=== PATIENT | female | born 1935 | race American Indian/Alaskan Native ===

== ENCOUNTER 2019-01-05 17:32 | Inpatient (IN) | payer MEDICARE ==
--- NOTE | 2019-01-05 17:43 | Consultation ---
History of Present Illness Consult date: 01/05/19 Medications and Allergies Allergies Allergy/AdvReac Type Severity Reaction Status Date / Time Penicillins Allergy Rash Verified 07/24/18 21:58 Home Medications Medication Instructions Recorded Confirmed Last Taken Type Aspirin [Adult Aspirin] 81 mg PO QDAY 07/24/18 07/24/18 Unknown History Carvedilol [Coreg] 12.5 mg PO BID 07/24/18 07/24/18 Unknown History Furosemide [Lasix TAB] 40 mg PO QDAY 07/24/18 07/24/18 Unknown History Gabapentin [Neurontin] 300 mg PO DAILY 07/24/18 07/24/18 Unknown History Lisinopril [Zestril] 20 mg PO QDAY 07/24/18 07/24/18 Unknown History Pravastatin [Pravachol] 40 mg PO DAILY 07/24/18 07/24/18 Unknown History metFORMIN [Glucophage] 500 mg PO BID 07/24/18 07/24/18 Unknown History - Assessment Assessment Interval: Baseline - Level of Consciousness 1a. Level of Consciousness: alert/keenly responsive - LOC Questions 1b. LOC Questions: answers 1 question correctly - LOC Command 1c. LOC Commands: performs tasks correctly - Best Gaze 2. Best Gaze: normal - Visual 3. Visual: no visual loss - Facial Palsy 4. Facial Palsy: minor paralysis - Motor Arm 5a. Motor Arm Left: drift 5b. Motor Arm Right: no drift - Motor Leg 6a. Motor Leg Left: no gravity effort 6b. Motor Leg Right: no drift - Limb Ataxia 7. Limb Ataxia: absent - Sensory 8. Sensory: mild/moderate sensory loss - Best Language 9. Best Language: no aphasia - Dysarthria 10. Dysarthria: mild/moderate dysarthria - Extinction and Inattention 11. Extinction/Inattention: no abnormality - Scoring Total Score: 8 Stroke Severity: Moderate Stroke Assessment and Plan Date of Service 01/05/2019 [facility] Tele[facility] Consult Services Comments: Last time known well: _ 01/01/19 Door time: _1732 [facility] contacted: _17:23 [facility] at bedside: _1726 NIHSS assessment time: _ 1727 consult end time: _1756 Impression: left sided weakness, slurred speech Consistent with Acute Ischemic Stroke Does meet Large Vessel Occlusion (LVO) screening criteria (Aphasia, Neglect, Gaze deviation/preference, Dense hemiparesis, or Visual field deficits on exam), therefore advanced imaging (CTA head and neck and CTP brain) is indicated. since deficits increased today and appears that the weakness noticed on tuesday was not focal, I believe CTA head and neck can be done urgently and if it shows Large Vessel Occlusion then transfer to get CTP brain and there may still be some salvagable brain if current deficits mostly started today. Differential Diagnosis: 1. Cardioembolic stroke 2. Small vessel disease/ lacune 3. Thromboembolic, [id number] mechanism 4. Hypercoagulable state-related infarct 5. Transient ischemic attack 6. Thrombotic mechanism, large artery disease tPA decision and other recommendations: _ Patient is not a tPA candidate Head CT did not show any acute hemorrhage. reviewed report (if available) and images Reason: _ last time known well>4.5 hours Based on the results of CTA head and neck and (if needed) CTP brain, will determine presence of Large Vessel Occlusion and eligibility for mechanical thrombectomy. Recommendations dysphagia screen ASA if no contraindications head of bed flat IV fluids NS Stroke work up with: noncontrast brain MRI, 2D ECHO, lipid panel, HbA1c (Goal LDL<70, HbA1c<7) inpatient neurology consultation Inpatient stroke evaluation as per Neurology/ Internal Medicine Discussed with ED physician/medical staff Reason for Stroke Alert and History of Present Illness: _ Patient is a(n) 83 years old female, with history of Diabetes Mellitus, last known well: 01/01/19 left sided weakness, and left facial droop, slurred speech weakness started Tuesday01/01/19 slurred speech was noticed on Tuesday01/03/19 today 01/05/19 at 1645 noticed left facial droop Blood Glucose: 182 Review of Systems: Constitutional: Negative except as documented in history of present illness. Eye: Negative except as documented in history of present illness. Ear/Nose/Mouth/Throat: Negative except as documented in history of present illness. Respiratory: Negative except as documented in history of present illness. Cardiovascular: Negative except as documented in history of present illness. Gastrointestinal: Negative except as documented in history of present illness. Musculoskeletal: Negative except as documented in history of present illness. Neurologic: Negative except as documented in history of present illness. Examination: NIHSS Details documented below ___ 8 Medical Decision Making: - Extensive number of diagnosis or management options are considered above. - Extensive amount of complex data reviewed. - High risk of complication and/or morbidity or mortality are associated with differential diagnostic considerations above. - There may be Uncertain outcome and increased probability of prolonged functional impairment or high probability of severe prolonged functional impairment associated with some of these differential diagnoses. Medical Data Reviewed: 1.Data reviewed include clinical labs, radiology, Medical Tests; 2.Tests results discussed w/performing or interpreting physician; 3.Obtaining/reviewing old medical records; 4.Obtaining case history from another source; 5.Independent review of image, tracing or specimen. When possible Patient/family were informed the Neurology Consult would happen via TeleHealth consult by way of interactive audio and video telecommunications and consented to receiving care in this manner. Case discussed with the Medical staff. Critical Care notation: I was called to see this critical patient emergently. I personally evaluated this critical patient for acute stroke evaluation and determining their eligibility for IV Alteplase and interventional therapies. I have spent approximately 30__ minutes with the patient, including time at bedside, time discussing the case with other physicians, reviewing plan of care, and time independently reviewing the records and scans.
[2019-01-05 18:06] LABS: Basophils % (Auto) 0.7 % (0.0-1.8); Eosinophils % (Auto) 0.7 % (0.0-4.3); Hematocrit 33.9 % (30.3-42.9); Hemoglobin 11.2 gm/dl (10.1-14.3); Lymphocytes # (Auto) 1.2 K/mm3 (1.2-5.4); Lymphocytes % (Auto) 24.7 % (13.4-35.0); Mean Corpuscular HGB Conc 33 % (30-34); Mean Corpuscular Volume 91 fl (79-97); Monocytes # (Auto) 0.4 K/mm3 (0.0-0.8); Monocytes % (Auto) 8.1 % (0.0-7.3); Platelet Count 198 K/mm3 (140-440); Red Blood Count 3.75 M/mm3 (3.65-5.03); Red Cell Distribution Width 12.6 % (13.2-15.2)
--- NOTE | 2019-01-05 18:06 | Cat Scan Report ---
PROCEDURE: CT HEAD/BRAIN WO CON TECHNIQUE: Computerized tomography of the head was performed without contrast material. CT DOSE LENGTH PRODUCT: 929.6 mGycm HISTORY: neuro deficits <6hrs or sx present upon awakening FINDINGS: Unenhanced CT of the brain was performed and compared to the prior examination of July 24, 2018. These images demonstrate no acute intracranial hemorrhage, extra-axial fluid collection, midline shif t or mass effect. The ventricles and basal cisterns are not effaced. 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 There is an old right periventricular white matter la cunar infarct which, although old appears new in comparison to prior head CT of August 10. There are moderate chronic-appearing small vessel ischemic white matter changes in the subcortical and per iventricular white matter, similar to prior examination July 24. No definite acute infarct is seen. MRI may be considered if patient has persistent symptomatology The mastoid air cells and middle ears appear clear. There is no evidence of acute sinusitis IMPRESSION: No acute intracranial hemorrhage This document is electronically signed by Terrell James MD., Jan 05 2019 06:05:01 PM ET
[2019-01-05 18:20] LABS: INR 1.07 (0.87-1.13)
[2019-01-05 18:22] LABS: Partial Thromboplastin Time 27.5 Sec. (24.2-36.6)
[2019-01-05 18:23] LABS: BUN/Creatinine Ratio 8; Blood Urea Nitrogen 14 mg/dL (7-17); Calcium 9.5 mg/dL (8.4-10.2); Hemolysis Index 0
--- NOTE | 2019-01-05 18:49 | Emergency Department Report ---
ED General Adult HPI - General Chief complaint: Neuro Symptoms/Deficit Stated complaint: CVA Time Seen by Provider: 01/05/19 17:56 Source: EMS Mode of arrival: Stretcher Limitations: Other - History of Present Illness Initial comments: Patient presents to the emergency department for left-sided weakness and slurred speech. Family states that on Tuesday the patient's left side of her body was weak which is abnormal for her. Her symptoms progressed to Tuesday where she had changes in her speech which was described as being a slurred and today she b richa to have changes of her facial appearance on the left side -: Gradual Severity scale (0 -10): 0 Consistency: constant Improves with: none Worsens with: none Associated Symptoms: denies other symptoms Treatments Prior to Arrival: none - Related Data Home Medications Medication Instructions Recorded Confirmed Last Taken Aspirin [Adult Aspirin] 81 mg PO QDAY 07/24/18 01/06/19 Unknown Carvedilol [Coreg] 12.5 mg PO BID 07/24/18 01/06/19 Unknown Furosemide [Lasix TAB] 40 mg PO QDAY 07/24/18 01/06/19 Unknown Gabapentin [Neurontin] 300 mg PO DAILY 07/24/18 01/06/19 Unknown Lisinopril [Zestril] 20 mg PO QDAY 07/24/18 01/06/19 Unknown Pravastatin [Pravachol] 40 mg PO DAILY 07/24/18 01/06/19 Unknown Allergies Allergy/AdvReac Type Severity Reaction Status Date / Time Penicillins Allergy Rash Verified 07/24/18 21:58 ED Review of Systems ROS: Stated complaint: CVA Other details as noted in HPI Constitutional: denies: chills, fever Eyes: denies: eye pain, eye discharge, vision change ENT: denies: ear pain, throat pain Respiratory: denies: cough, shortness of breath, wheezing Cardiovascular: denies: chest pain, palpitations Endocrine: no symptoms reported Gastrointestinal: denies: abdominal pain, nausea, diarrhea Genitourinary: denies: urgency, dysuria, discharge Musculoskeletal: denies: back pain, joint swelling, arthralgia Skin: denies: rash, lesions Neurological: denies: headache, weakness, paresthesias Psychiatric: denies: anxiety, depression Hematological/Lymphatic: denies: easy bleeding, easy bruising Other: weakness ED Past Medical Hx - Past Medical History Hx Hypertension: Yes Hx Diabetes: Yes Hx Arthritis: Yes Hx Asthma: Yes Additional medical history: Osteoarthritis - Surgical History Additional Surgical History: Bilateral hip replacement - Social History Smoking Status: Never Smoker - Medications Home Medications: Home Medications Medication Instructions Recorded Confirmed Last Taken Type Aspirin [Adult Aspirin] 81 mg PO QDAY 07/24/18 01/06/19 Unknown History Carvedilol [Coreg] 12.5 mg PO BID 07/24/18 01/06/19 Unknown History Furosemide [Lasix TAB] 40 mg PO QDAY 07/24/18 01/06/19 Unknown History Gabapentin [Neurontin] 300 mg PO DAILY 07/24/18 01/06/19 Unknown History Lisinopril [Zestril] 20 mg PO QDAY 07/24/18 01/06/19 Unknown History Pravastatin [Pravachol] 40 mg PO DAILY 07/24/18 01/06/19 Unknown History ED Physical Exam - General Limitations: Other General appearance: alert, in no apparent distress - Head Head exam: Present: atraumatic, normocephalic - Eye Eye exam: Present: normal appearance, PERRL, EOMI - ENT ENT exam: Present: mucous membranes moist - Neck Neck exam: Present: normal inspection - Respiratory Respiratory exam: Present: normal lung sounds bilaterally. Absent: respiratory distress - Cardiovascular Cardiovascular Exam: Present: regular rate, normal rhythm. Absent: systolic murmur, diastolic murmur, rubs, gallop - GI/Abdominal GI/Abdominal exam: Present: soft, normal bowel sounds. Absent: distended, ten derness - Extremities Exam Extremities exam: Present: normal inspection - Back Exam Back exam: Present: normal inspection - Neurological Exam Neurological exam: Present: alert, oriented X3, CN II-XII intact, other (she has a left-sided facial droop, cannot lift his left leg against gravity, left upper extremity weakness). Absent: motor sensory deficit - Psychiatric Psychiatric exam: Present: normal affect, normal mood - Skin Skin exam: Present: warm, dry, intact, normal color. Absent: rash ED Course Vital Signs 01/05/19 01/05/19 01/05/19 18:00 18:15 18:16 Temperature 98.9 F Pulse Rate 77 77 Respiratory 14 18 Rate Blood Pressure 183/109 Blood Pressure 183/109 [Left] O2 Sat by Pulse 99 99 99 Oximetry 01/05/19 01/05/19 01/05/19 18:30 18:45 19:00 Temperature 97.9 F Pulse Rate 78 71 73 Respiratory 18 17 17 Rate Blood Pressure 183/109 175/108 175/108 Blood Pressure [Left] O2 Sat by Pulse 98 98 99 Oximetry 01/05/19 01/05/19 01/05/19 19:15 19:30 19:45 Temperature Pulse Rate 78 75 78 Respiratory 13 17 17 Rate Blood Pressure 167/106 171/105 171/101 Blood Pressure [Left] O2 Sat by Pulse 98 97 97 Oximetry 01/05/19 01/05/19 01/05/19 20:00 20:15 20:21 Temperature Pulse Rate 85 101 H 86 Respiratory 14 20 Rate Blood Pressure 168/115 168/115 193/117 Blood Pressure [Left] O2 Sat by Pulse 99 Oximetry 01/05/19 01/05/19 01/05/19 20:30 20:45 21:00 Temperature Pulse Rate 85 85 88 Respiratory 16 16 15 Rate Blood Pressure 178/96 172/91 172/100 Blood Pressure [Left] O2 Sat by Pulse 98 98 Oximetry 01/05/19 01/05/19 01/05/19 21:15 21:30 21:45 Temperature Pulse Rate 93 H 85 82 Respiratory 9 L 12 14 Rate Blood Pressure 165/115 162/96 184/100 Blood Pressure [Left] O2 Sat by Pulse 98 100 100 Oximetry 01/05/19 01/05/19 01/05/19 22:00 22:15 22:30 Temperature Pulse Rate 81 83 80 Respiratory 10 L 15 14 Rate Blood Pressure 179/95 163/97 162/99 Blood Pressure [Left] O2 Sat by Pulse 99 99 99 Oximetry 01/05/19 01/05/19 01/05/19 22:45 22:51 23:00 Temperature Pulse Rate 80 82 83 Respiratory 12 14 15 Rate Blood Pressure 177/99 177/99 164/95 Blood Pressure [Left] O2 Sat by Pulse 100 100 99 Oximetry 01/05/19 01/05/19 01/05/19 23:11 23:21 23:30 Temperature Pulse Rate 78 78 75 Respiratory 12 16 15 Rate Blood Pressure 164/95 156/99 155/94 Blood Pressure [Left] O2 Sat by Pulse 99 100 99 Oximetry 01/05/19 01/05/19 01/06/19 23:41 23:51 00:00 Temperature Pulse Rate 85 76 73 Respiratory 12 15 15 Rate Blood Pressure 155/94 160/95 163/95 Blood Pressure [Left] O2 Sat by Pulse 100 100 99 Oximetry 01/06/19 01/06/19 00:11 00:31 Temperature 97.8 F Pulse Rate 74 81 Respiratory 17 18 Rate Blood Pressure 155/94 213/101 Blood Pressure [Left] O2 Sat by Pulse 100 96 Oximetry ED Medical Decision Making - Lab Data Result diagrams: 01/05/19 17:55 01/09/19 06:05 Lab Results 01/05/19 01/05/19 01/05/19 Range/Units 17:55 17:55 17:55 WBC 4.9 (4.5-11.0) K/mm3 RBC 3.75 (3.65-5.03) M/mm3 Hgb 11.2 (10.1-14.3) gm/dl Hct 33.9 (30.3-42.9) % MCV 91 (79-97) fl MCH 30 (28-32) pg MCHC 33 (30-34) % RDW 12.6 L (13.2-15.2) % Plt Count 198 (140-440) K/mm3 Lymph % (Auto) 24.7 (13.4-35.0) % [place] % (Auto) 8.1 H (0.0-7.3) % Eos % (Auto) 0.7 (0.0-4.3) % Baso % (Auto) 0.7 (0.0-1.8) % Lymph # 1.2 (1.2-5.4) K/mm3 [place] # 0.4 (0.0-0.8) K/mm3 Eos # 0.0 (0.0-0.4) K/mm3 Baso # 0.0 (0.0-0.1) K/mm3 Seg Neutrophils % 65.8 (40.0-70.0) % Seg Neutrophils # 3.2 (1.8-7.7) K/mm3 PT 14.6 (12.2-14.9) Sec. INR 1.07 (0.87-1.13) APTT 27.5 (24.2-36.6) Sec. Thrombin Time (15.1-19.6) Sec. Sodium 144 (137-145) mmol/L Potassium 4.3 (3.6-5.0) mmol/L Chloride 105.2 (98-107) mmol/L Carbon Dioxide 28 (22-30) mmol/L Anion Gap 15 mmol/L BUN 14 (7-17) mg/dL Creatinine 1.8 H (0.7-1.2) mg/dL Estimated GFR 33 ml/min BUN/Creatinine Ratio 8 % Glucose 167 H (65-100) mg/dL Calcium 9.5 (8.4-10.2) mg/dL Troponin T < 0.010 (0.00-0.029) ng/mL 01/05/19 Range/Units 17:55 WBC (4.5-11.0) K/mm3 RBC (3.65-5.03) M/mm3 Hgb (10.1-14.3) gm/dl Hct (30.3-42.9) % MCV (79-97) fl MCH (28-32) pg MCHC (30-34) % RDW (13.2-15.2) % Plt Count (140-440) K/mm3 Lymph % (Auto) (13.4-35.0) % [place] % (Auto) (0.0-7.3) % Eos % (Auto) (0.0-4.3) % Baso % (Auto) (0.0-1.8) % Lymph # (1.2-5.4) K/mm3 [place] # (0.0-0.8) K/mm3 Eos # (0.0-0.4) K/mm3 Baso # (0.0-0.1) K/mm3 Seg Neutrophils % (40.0-70.0) % Seg Neutrophils # (1.8-7.7) K/mm3 PT (12.2-14.9) Sec. INR (0.87-1.13) APTT (24.2-36.6) Sec. Thrombin Time 15.1 (15.1-19.6) Sec. Sodium (137-145) mmol/L Potassium (3.6-5.0) mmol/L Chloride (98-107) mmol/L Carbon Dioxide (22-30) mmol/L Anion Gap mmol/L BUN (7-17) mg/dL Creatinine (0.7-1.2) mg/dL Estimated GFR ml/min BUN/Creatinine Ratio % Glucose (65-100) mg/dL Calcium (8.4-10.2) mg/dL Troponin T (0.00-0.029) ng/mL - Radiology Data Radiology results: report reviewed - Medical Decision Making Code Stroke was called IV hydralazine for BP Critical Care Time: Yes Critical care time in (mins) excluding proc time.: 35 Critical care attestation.: If time is entered above; I have spent that time in minutes in the direct care of this critically ill patient, excluding procedure time. ED Disposition Clinical Impression: CVA (cerebral vascular accident) Disposition: OP ADMIT IP TO THIS HOSP Is pt being admited?: No Does the pt Need Aspirin: Yes Condition: Fair - Assessment Assessment Interval: Baseline - Level of Consciousness 1a. Level of Consciousness: alert/keenly responsive - LOC Questions 1b. LOC Questions: answers 1 question correctly - LOC Command 1c. LOC Commands: performs tasks correctly - Best Gaze 2. Best Gaze: normal - Visual 3. Visual: no visual loss - Facial Palsy 4. Facial Palsy: minor paralysis - Motor Arm 5a. Motor Arm Left: drift 5b. Motor Arm Right: no drift - Motor Leg 6a. Motor Leg Left: no gravity effort 6b. Motor Leg Right: no drift - Limb Ataxia 7. Limb Ataxia: absent - Sensory 8. Sensory: mild/moderate sensory loss - Best Language 9. Best Language: no aphasia - Dysarthria 10. Dysarthria: mild/moderate dysarthria - Extinction and Inattention 11. Extinction/Inattention: visual/tactile inattention - Scoring Total Score: 9 Stroke Severity: Moderate Stroke
[2019-01-05] MEDS ORDERED: BABY ASPIRIN PO ONE ×2 (19:05→20:04)
[2019-01-05] MEDS ORDERED: APRESOLINE IV ONE (19:31)
--- NOTE | 2019-01-05 19:40 | XRay Report ---
PROCEDURE: XR CHEST 1V AP TECHNIQUE: Chest radiograph single view. HISTORY: neuro deficit COMPARISONS: None . FINDINGS: Heart: Normal. Mediastinum/Vessels: Normal. Lungs/Pleural space: Normal. Bony thorax: No acute osseous abnormality. Life support devices: None. IMPRESSION: No acute cardiopulmonary abnormality. This document is electronically signed by Olivia Herring DO., Jan 05 2019 07:38:07 PM ET
--- NOTE | 2019-01-05 21:51 | History and Physical Report ---
History of Present Illness Date of examination: 01/05/19 History of present illness: 83-year-old woman with a history of hypertension, diabetes comes emergency room with complaints of slurred speech and left-sided weakness, status post fall, Complaining of pain on the left side Review of systems Constitutional: no weight loss, chills, fever Ears, eyes, nose, mouth and throat: no nasal congestion, no nasal discharge, no sinus pressure, no vision change, no red eye. Neck: No neck pain or rigidity. Cardiovascular: no palpitations, chest pain Respiratory: no cough, shortness of breath Gastrointestinal: no hematochezia, abdominal pain Genitourinary : no frequency , no hematuria Musculoskeletal: no joint swelling or muscle ache Integumentary: no rash, no pruritis Neurological: no parathesias, +focal weakness Endocrine: no cold or heat intolerance, no polyuria or polydipsia Hematologic/Lymphatic: no easy bruising, no easy bleeding, no gland swelling Allergic/Immunologic: no urticaria, no angioedema. PAST MEDICAL HISTORY:hypertension, diabetes PAST SURGICAL HISTORY: Hip replacement, knee replacement, hysterectomy SOCIAL HISTORY: Denies alcohol, drugs, tobacco FAMILY HISTORY: Hypertension Medications and Allergies Allergies Allergy/AdvReac Type Severity Reaction Status Date / Time Penicillins Allergy Rash Verified 07/24/18 21:58 Home Medications Medication Instructions Recorded Confirmed Last Taken Type Aspirin [Adult Aspirin] 81 mg PO QDAY 07/24/18 01/06/19 Unknown History Carvedilol [Coreg] 12.5 mg PO BID 07/24/18 01/06/19 Unknown History Furosemide [Lasix TAB] 40 mg PO QDAY 07/24/18 01/06/19 Unknown History Gabapentin [Neurontin] 300 mg PO DAILY 07/24/18 01/06/19 Unknown History Lisinopril [Zestril] 20 mg PO QDAY 07/24/18 01/06/19 Unknown History Pravastatin [Pravachol] 40 mg PO DAILY 07/24/18 01/06/19 Unknown History Active Meds: Active Medications Enoxaparin Sodium (Lovenox) 30 mg SUB-Q QDAY OPAL Exam - Physical Exam Narrative exam: General Apperance: The patient lying in bed, breathing comfortable HEENT: Normocephalic, atraumatic. Pupils equally round and reactive to light, EOMI, no sclericterus or JVD or thyromegaly or nodule. , no carotid bruit, mucous membranes moist, no exudate or erythema Heart: S1-S2, regular is rhythm Lungs: Clear to auscultation bilaterally, breathing comfortable Abdomen: Positive bowel sounds, soft, nontender, nondistended, no organomegaly Extremities: No edema cyanosis clubbing Skin: no rash, nodule, warm and dry Neuro: cranial nerves 2-12 intact, speech is slurred, motor -LUE/LLE 4/5, sensory intact - Constitutional Vitals: Temp Pulse Resp BP Pulse Ox 98.9 F 86 13 193/117 98 01/05/19 18:16 01/05/19 20:21 01/05/19 19:15 01/05/19 20:21 01/05/19 19:15 Results - Labs CBC & Chem 7: 01/05/19 17:55 01/05/19 17:55 Labs: Abnormal lab results 01/05/19 01/05/19 Range/Units 17:55 17:55 RDW 12.6 L (13.2-15.2) % [place] % (Auto) 8.1 H (0.0-7.3) % Creatinine 1.8 H (0.7-1.2) mg/dL Glucose 167 H (65-100) mg/dL - Imaging and Cardiology Chest x-ray: report reviewed CT Scan - head: report reviewed Assessment and Plan Assessment Acute CVA Acute renal insufficiency Hypertension Diabetes Admit to medicine Obtain MRI of the head and neck, echo Do neuro checks, swallow screen Start aspirin, statin Consult neurology, PT and OT Check fingersticks and initiate insulin sliding scale DVT prophylaxis, start iv fluid
[2019-01-05] MEDS ORDERED: TYLENOL PO PRN (22:48)
[2019-01-05] MEDS ORDERED: DULCOLAX PR PRN (22:48)
[2019-01-05] MEDS ORDERED: MILK OF MAGNESIA PO PRN (22:48)
[2019-01-05] MEDS ORDERED: ZOFRAN IV PRN (22:48)
[2019-01-05] MEDS ORDERED: SODIUM CHLORIDE FLUSH SYRINGE 10 ML IV PRN (22:48)
[2019-01-06] MEDS: APRESOLINE IV PRN ×2 (00:46→22:43)
[2019-01-06] MEDS ORDERED: NACL 0.45% 1000 ML 1,000 ML IV SCH (03:00)
[2019-01-06 05:12] LABS: Chol/HDL Ratio 2.62 %
[2019-01-06] MEDS ORDERED: ASPIRIN PO SCH (10:00)
[2019-01-06] MEDS: PRAVACHOL PO SCH (10:38)
[2019-01-06] MEDS: NEURONTIN PO SCH (10:38)
[2019-01-06] MEDS: LOVENOX SUB-Q SCH (10:38)
[2019-01-06] MEDS ORDERED: ATIVAN IV ONE (11:00)
[2019-01-06] MEDS: D5NS 1,000 ML IV SCH (12:34)
[2019-01-06] MEDS: ASPIRIN PR SCH (12:37)
--- NOTE | 2019-01-06 13:02 | Progress Note ---
Subjective Date of service: 01/06/19 Interval history: there are numerous old infarcts in the internal capsules and very large infarct in the fabiano this is likely cause of the fall and left sided weakness plan EEG and recommend check Xray left ip as there was prior implant... spoke to the family Objective - Vital Sign Vital Signs - 12hr 01/06/19 01/06/19 01/06/19 06:00 08:32 12:05 Temperature 97.9 F 97.9 F Pulse Rate 52 L 55 L 98 H Respiratory 16 18 Rate Blood Pressure 185/89 172/80 [Left] O2 Sat by Pulse 98 98 Oximetry - Laboratory Findings CBC and BMP: 01/05/19 17:55 01/05/19 17:55 Abnormal Lab Findings: Abnormal Labs 01/05/19 01/05/19 01/06/19 17:55 17:55 04:35 RDW 12.6 L [place] % (Auto) 8.1 H Creatinine 1.8 H Glucose 167 H POC Glucose HDL Cholesterol 70 H 01/06/19 01/06/19 08:31 12:03 RDW [place] % (Auto) Creatinine Glucose POC Glucose 111 H 131 H HDL Cholesterol
--- NOTE | 2019-01-06 13:29 | Progress Note ---
Assessment and Plan Acute CVA, likely - MRI brain pending, cont stroke protocol - cont aspirin.statin, follow neuro eval - Pending PT eval Acute encephalopathy - likely from acute CVA - appears more baseline per the family now - cont to monitor Acute renal insufficiency/vasomotor nephropathy - start on IV fluid Hypertension, monitor, start home meds Diabetes, SSI for now DVT prophylaxis, lovenox Subjective Date of service: 01/06/19 Interval history: patient seen and examined No acute event o/n Could not do MRI today as she was not cooperative Updated family at the bedside Objective - Exam Narrative Exam: General Apperance: The patient lying in bed, breathing comfortable HEENT: Normocephalic, atraumatic. Pupils equally round and reactive to light, EOMI, no sclericterus or JVD or thyromegaly or nodule. , no carotid bruit, mucous membranes moist, no exudate or erythema Heart: S1-S2, regular is rhythm Lungs: Clear to auscultation bilaterally, breathing comfortable Abdomen: Positive bowel sounds, soft, nontender, nondistended, no organomegaly Extremities: No edema cyanosis clubbing Skin: no rash, nodule, warm and dry Neuro: cranial nerves 2-12 intact, speech is slurred, motor -LUE/LLE 4/5, sensory intact - Constitutional Vitals: Vital Signs - 12hr 01/06/19 01/06/19 01/06/19 06:00 08:32 12:05 Temperature 97.9 F 97.9 F Pulse Rate 52 L 55 L 98 H Respiratory 16 18 Rate Blood Pressure 185/89 172/80 [Left] O2 Sat by Pulse 98 98 Oximetry - Labs CBC & Chem 7: 01/05/19 17:55 01/08/19 05:14 Labs: Abnormal lab results 01/05/19 01/05/19 01/06/19 Range/Units 17:55 17:55 04:35 RDW 12.6 L (13.2-15.2) % [place] % (Auto) 8.1 H (0.0-7.3) % Creatinine 1.8 H (0.7-1.2) mg/dL Glucose 167 H (65-100) mg/dL POC Glucose (70-105) HDL Cholesterol 70 H (40-59) mg/dL 05/18/19 05/18/19 Range/Units 08:31 12:03 RDW (13.2-15.2) % [place] % (Auto) (0.0-7.3) % Creatinine (0.7-1.2) mg/dL Glucose (65-100) mg/dL POC Glucose 111 H 131 H (70-105) HDL Cholesterol (40-59) mg/dL
[2019-01-06] MEDS: MORPHINE IV PRN (14:12)
--- NOTE | 2019-01-06 14:59 | XRay Report ---
PROCEDURE: XR HIPS BILAT 2V W/PELVIS TECHNIQUE: Pelvis, one view Right hip, frog-leg lateral view Left hip, frog-leg lateral view HISTORY: Patient fell, fracture hips COMPARISONS: Pelvis radiograph 07/24/2018 FINDINGS: Bilateral hip arthroplasty appears unchanged without acute finding. Prominent heterotopic bone formation again noted and appears stable adjacent to the proximal femur bi laterally. There is diffuse osseous demineralization which limits the examination. Degenerative change in the pelvis and spine. There is no radiographic evidence of definite acute fracture or dislocation. No evidence of osseous lesion. IMPRESSION: No definite radiographically visible acute skeletal pathology in the pelvis and hips This document is electronically signed by Sriram Kim MD., Jan 06 2019 02:57:36 PM ET
[2019-01-06] MEDS ORDERED: PRAVACHOL PO SCH (22:00)
[2019-01-07] MEDS: D5NS 1,000 ML IV SCH (02:32)
[2019-01-07] MEDS: LOVENOX SUB-Q SCH (10:02)
[2019-01-07] MEDS: NEURONTIN PO SCH (10:02)
[2019-01-07] MEDS: ASPIRIN PR SCH (10:02)
[2019-01-07] MEDS: PRAVACHOL PO SCH (10:02)
--- NOTE | 2019-01-07 14:03 | Progress Note ---
Assessment and Plan Acute CVA, likely - MRI brain pending, cont stroke protocol - cont aspirin.statin, follow neuro recommendation - PT recommended NEIL Acute encephalopathy - likely from acute CVA - appears more baseline per the family now - cont to monitor Acute renal insufficiency/vasomotor nephropathy - start on IV fluid Hypertension, monitor, start home meds Diabetes, SSI for now, A1c 5.4 DVT prophylaxis, lovenox Subjective Date of service: 01/07/19 Interval history: patient seen and examined No acute event o/n MRI pending, patient more cooperative, passed swallow eval Updated family at the bedside Objective - Exam Narrative Exam: General Apperance: The patient lying in bed, breathing comfortable HEENT: Normocephalic, atraumatic. Pupils equally round and reactive to light, EOMI, no sclericterus or JVD or thyromegaly or nodule. , no carotid bruit, mucous membranes moist, no exudate or erythema Heart: S1-S2, regular is rhythm Lungs: Clear to auscultation bilaterally, breathing comfortable Abdomen: Positive bowel sounds, soft, nontender, nondistended, no organomegaly Extremities: No edema cyanosis clubbing Skin: no rash, nodule, warm and dry Neuro: cranial nerves 2-12 intact, speech is slurred, motor -LUE/LLE 4/5, sensory intact - Constitutional Vitals: Vital Signs - 12hr 01/07/19 01/07/19 01/07/19 05:00 07:39 10:00 Temperature 98.1 F 98.5 F Pulse Rate 56 L 58 L 58 L Respiratory 18 16 Rate Blood Pressure 148/68 150/81 O2 Sat by Pulse 99 98 Oximetry 01/07/19 13:36 Temperature 97.6 F Pulse Rate 96 H Respiratory 16 Rate Blood Pressure 180/98 O2 Sat by Pulse 97 Oximetry - Labs CBC & Chem 7: 01/05/19 17:55 01/08/19 05:14 Labs: Abnormal lab results 01/06/19 01/06/19 01/07/19 Range/Units 16:14 20:56 07:45 POC Glucose 152 H 181 H 160 H (70-105) 01/07/19 Range/Units 12:21 POC Glucose 183 H (70-105)
[2019-01-07] MEDS: COREG PO SCH ×2 (14:13→21:50)
[2019-01-07] MEDS: ZESTRIL PO SCH (14:13)
[2019-01-07] MEDS: APRESOLINE IV PRN ×2 (14:14→23:44)
[2019-01-07] MEDS ORDERED: PRAVACHOL PO SCH (22:00)
[2019-01-08 06:10] LABS: Calcium 9.4 mg/dL (8.4-10.2)
[2019-01-08] MEDS: MORPHINE IV PRN (08:37)
[2019-01-08] MEDS: LOVENOX SUB-Q SCH (09:23)
[2019-01-08] MEDS: COREG PO SCH ×2 (09:24→21:32)
[2019-01-08] MEDS: ASPIRIN PR SCH (09:25)
[2019-01-08] MEDS: ZESTRIL PO SCH (09:26)
[2019-01-08] MEDS: NEURONTIN PO SCH (09:26)
[2019-01-08] MEDS: LASIX PO SCH (09:40)
[2019-01-08] MEDS ORDERED: ATIVAN IV ONE (11:15)
--- NOTE | 2019-01-08 14:32 | Magnetic Resonance Report ---
MRA HEAD WITHOUT CONTRAST HISTORY: Stroke. [id number] imaging with MIP reformations of the moapa of [place]q is submitted. The arteries appear widely patent and free of hemodynamically significant stenosis, aneurysm or dissection. IMPRESSION: Unremarkable MRA head.
--- NOTE | 2019-01-08 14:32 | Magnetic Resonance Report ---
MRI OF THE BRAIN WITHOUT CONTRAST: HISTORY: Stroke PROCEDURE: Multiplanar, multisequence MR imaging of the brain without IV contrast was performed. FINDINGS: Compared to the CT head dated 01/05/19. MRI demonstrates a focal area of diffusion restriction extending from the right basal ganglia to the right garcia radiata on images 16-21. This area of diffusion restriction measures up to 1.7 cm in greatest axial diameter. There is also a subtle subcentimeter area of weak diffusion restriction in the left basal ganglia on diffusion image 18. There is decreased signal in this area on the ADC map suggesting a subacute focus of ischemia. No other areas of diffusion restriction are identified. No evidence for acute hemorrhage, mass or mass effect. A chronic 1 cm hemorrhagic infarct is identified in the posterior lateral left thalamus. This is adjacent to the area of weak diffusion restriction. There are also several small foci of blooming artifact on the gradient images in the basal ganglia and occipital lobes suggestive of chronic microhemorrhages. Mild diffuse volume loss and moderate nonspecific chronic white matter changes are identified. The midline structures are central. The basal cisterns are patent. Normal ventricular size. The orbital cavities and sella turcica demonstrate no abnormality. The visualized paranasal sinuses and mastoid air cells are well aerated. IMPRESSION: Approximate 1.6 cm ischemic infarct in the right basal ganglia extending to the right garcia radiata. A smaller more subacute ischemic infarct is suspected in the left basal ganglia as described. 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 Volume loss and chronic white matter changes.
[2019-01-08] MEDS ORDERED: ASPIRIN PO SCH (15:00)
--- NOTE | 2019-01-08 16:26 | Progress Note ---
Subjective Date of service: 01/08/19 Interval history: the MRI shows single small infarct in the right hemiphere that is related to ischemic infarct this is small stroke but also there is considerable atrophy related to age : 83 went over the results with the family Objective - Vital Sign Vital Signs - 12hr 01/08/19 01/08/19 01/08/19 08:11 09:24 09:26 Temperature 97.9 F Pulse Rate 73 70 70 Respiratory 18 Rate Blood Pressure 175/102 175/102 175/102 O2 Sat by Pulse 100 Oximetry 01/08/19 12:08 Temperature 98.2 F Pulse Rate 54 L Respiratory 19 Rate Blood Pressure 164/80 O2 Sat by Pulse 97 Oximetry - Laboratory Findings CBC and BMP: 01/05/19 17:55 01/08/19 05:14 Abnormal Lab Findings: Abnormal Labs 01/05/19 01/05/19 01/06/19 17:55 17:55 04:35 RDW 12.6 L [place] % (Auto) 8.1 H Chloride Creatinine 1.8 H Glucose 167 H POC Glucose HDL Cholesterol 70 H 01/06/19 01/06/19 01/06/19 08:31 12:03 16:14 RDW [place] % (Auto) Chloride Creatinine Glucose POC Glucose 111 H 131 H 152 H HDL Cholesterol 01/06/19 01/07/19 01/07/19 20:56 07:45 12:21 RDW [place] % (Auto) Chloride Creatinine Glucose POC Glucose 181 H 160 H 183 H HDL Cholesterol 01/07/19 01/07/19 01/08/19 17:06 21:01 05:14 RDW [place] % (Auto) Chloride 109.2 H Creatinine 1.6 H Glucose 123 H POC Glucose 113 H 119 H HDL Cholesterol 01/08/19 11:26 RDW [place] % (Auto) Chloride Creatinine Glucose POC Glucose 201 H HDL Cholesterol
--- NOTE | 2019-01-08 16:31 | Consultation ---
History of Present Illness - Reason for Consult Consult date: 01/08/19 - History of Present Illness discussed the results of the MRI and the MRA with the family and advised them on prognosis Medications and Allergies Allergies Allergy/AdvReac Type Severity Reaction Status Date / Time Penicillins Allergy Rash Verified 07/24/18 21:58 Home Medications Medication Instructions Recorded Confirmed Last Taken Type Aspirin [Adult Aspirin] 81 mg PO QDAY 07/24/18 01/06/19 Unknown History Carvedilol [Coreg] 12.5 mg PO BID 07/24/18 01/06/19 Unknown History Furosemide [Lasix TAB] 40 mg PO QDAY 07/24/18 01/06/19 Unknown History Gabapentin [Neurontin] 300 mg PO DAILY 07/24/18 01/06/19 Unknown History Lisinopril [Zestril] 20 mg PO QDAY 07/24/18 01/06/19 Unknown History Pravastatin [Pravachol] 40 mg PO DAILY 07/24/18 01/06/19 Unknown History Active Meds: Active Medications Acetaminophen (Tylenol) 650 mg PO Q4H PRN PRN Reason: Pain, Mild (1-3) Aspirin (Aspirin) 325 mg PO QDAY [facility] Atorvastatin Calcium (Lipitor) 40 mg PO QHS [facility] Bisacodyl (Dulcolax) 10 mg [place] QDAY PRN PRN Reason: Constipation Carvedilol (Coreg) 12.5 mg PO BID [facility] Last Admin: 01/08/19 09:24 Dose: 12.5 mg Documented by: Enoxaparin Sodium (Lovenox) 30 mg SUB-Q QDAY [facility] Last Admin: 01/08/19 09:23 Dose: 30 mg Documented by: Furosemide (Lasix) 40 mg PO QDAY [facility] Last Admin: 01/08/19 09:40 Dose: 40 mg Documented by: Gabapentin (Neurontin) 300 mg PO DAILY [facility] Last Admin: 01/08/19 09:26 Dose: 300 mg Documented by: Hydralazine HCl (Apresoline) 5 mg IV Q6H PRN PRN Reason: Hypertension Last Admin: 01/07/19 23:44 Dose: 5 mg Documented by: Insulin Human Regular (Humulin R) 0 units SUB-Q [facility]; Protocol Lisinopril (Zestril) 20 mg PO QDAY [facility] Last Admin: 01/08/19 09:26 Dose: 20 mg Documented by: Magnesium Hydroxide (Milk Of Magnesia) 30 ml PO Q4H PRN PRN Reason: Constipation Morphine Sulfate (Morphine) 1 mg IV Q4H PRN PRN Reason: Pain, Moderate (4-6) Last Admin: 01/08/19 08:37 Dose: 1 mg Documented by: Ondansetron HCl (Zofran) 4 mg IV Q8H PRN PRN Reason: Nausea And Vomiting Sodium Chloride (Sodium Chloride Flush Syringe 10 Ml) 10 ml IV PRN PRN PRN Reason: LINE FLUSH Exam - Constitutional Vitals: Temp Pulse Resp BP Pulse Ox 98.2 F 54 L 19 164/80 97 01/08/19 12:08 01/08/19 12:08 01/08/19 12:08 01/08/19 12:08 01/08/19 12:08 Results - Labs CBC & Chem 7: 01/05/19 17:55 01/08/19 05:14 Labs: Abnormal lab results 01/07/19 01/07/19 01/08/19 Range/Units 17:06 21:01 05:14 Chloride 109.2 H (98-107) mmol/L Creatinine 1.6 H (0.7-1.2) mg/dL Glucose 123 H (65-100) mg/dL POC Glucose 113 H 119 H (70-105) 01/08/19 Range/Units 11:26 Chloride (98-107) mmol/L Creatinine (0.7-1.2) mg/dL Glucose (65-100) mg/dL POC Glucose 201 H (70-105)
[2019-01-08] MEDS: HumuLIN R SUB-Q SCH ×2 (18:54→22:01)
--- NOTE | 2019-01-09 01:19 | Progress Note ---
Assessment and Plan Acute right basal ganglia CVA, - s/p MRI brain/CT head, cont stroke protocol - cont statin, follow neuro recommendation - PT recommended NEIL - MRI showed chronic hemorrhagic CVA, will hold aspirin/heparin until clears by neuro Acute encephalopathy - likely from acute CVA - appears more baseline per the family now - cont to monitor Acute renal insufficiency/vasomotor nephropathy - started on IV fluid, monitor BMP Hypertension, monitor, cont home meds, adjust meds as needed HLD, cont statin Diabetes, SSI for now, A1c 5.4 DVT prophylaxis, lovenox Brief history: 83-year-old woman with a history of hypertension, diabetes comes emergency room with complaints of slurred speech and left-sided weakness, status post fall, Complaining of pain on the left side. Subjective Date of service: 01/08/19 Interval history: patient seen and examined No acute event o/n patient more cooperative, passed swallow eval Updated family at the bedside MRI brain showed right basal ganglia CVA Objective - Exam Narrative Exam: General Apperance: The patient lying in bed, breathing comfortable HEENT: Normocephalic, atraumatic. Pupils equally round and reactive to light, EOMI, no sclericterus or JVD or thyromegaly or nodule. , no carotid bruit, mucous membranes moist, no exudate or erythema Heart: S1-S2, regular is rhythm Lungs: Clear to auscultation bilaterally, breathing comfortable Abdomen: Positive bowel sounds, soft, nontender, nondistended, no organomegaly Extremities: No edema cyanosis clubbing Skin: no rash, nodule, warm and dry Neuro: cranial nerves 2-12 intact, speech is slurred, motor -LUE/LLE 4/5, sensory intact - Constitutional Vitals: Vital Signs - 12hr 01/08/19 01/08/19 01/09/19 20:34 21:32 00:16 Temperature 98.4 F 97.9 F Pulse Rate 55 L 72 63 Respiratory 16 16 Rate Blood Pressure 148/86 129/71 O2 Sat by Pulse 99 100 Oximetry - Labs CBC & Chem 7: 01/05/19 17:55 01/08/19 05:14 Labs: Abnormal lab results 01/08/19 01/08/19 01/08/19 Range/Units 05:14 11:26 18:58 Chloride 109.2 H (98-107) mmol/L Creatinine 1.6 H (0.7-1.2) mg/dL Glucose 123 H (65-100) mg/dL POC Glucose 201 H 147 H (70-105) 01/08/19 Range/Units 21:27 Chloride (98-107) mmol/L Creatinine (0.7-1.2) mg/dL Glucose (65-100) mg/dL POC Glucose 153 H (70-105)
--- NOTE | 2019-01-09 08:39 | Ultrasound Report ---
ULTRASOUND RENAL BILATERAL HISTORY: Chronic kidney disease. TECHNIQUE: transabdominal ultrasound with color Doppler interrogation. FINDINGS: The right kidney measures 9.2 x 5.0 x 4.9cm. Right renal cortex: 1.5cm. A 2.8 cm simple cyst is identified at the inferior pole the right kidney. The left kidney measures 10.0 x 5.7 x 5.8cm. Left renal cortex: 1.2cm. There are 4 cysts in the mid to inferior left kidney ranging from 1.1 cm to 3.7 cm in diameter. The kidneys are normal size and position. Renal cortical echotexture is increased consistent with nonspecific renal parenchymal disease. No evidence for calculus, hydronephrosis or perinephric fluid. The bladder is partially empty but unremarkable. IMPRESSION: Nonspecific renal parenchymal disease. No obstructive uropathy. Bilateral renal cysts as described.
[2019-01-09] MEDS: ZESTRIL PO SCH (10:10)
[2019-01-09] MEDS: NEURONTIN PO SCH (10:11)
[2019-01-09] MEDS: LASIX PO SCH (10:11)
[2019-01-09] MEDS: COREG PO SCH ×2 (10:14→21:35)
[2019-01-09] MEDS: HumuLIN R SUB-Q SCH ×4 (10:54→21:35)
--- NOTE | 2019-01-09 12:32 | Progress Note ---
Assessment and Plan Acute right basal ganglia CVA, - s/p MRI brain/CT head, cont stroke protocol - cont statin, follow neuro recommendation - PT recommended NEIL - MRI showed chronic hemorrhagic CVA, will hold aspirin/heparin until clears by neuro Acute encephalopathy - likely from acute CVA - appears more baseline per the family now - cont to monitor Acute renal insufficiency/vasomotor nephropathy - started on IV fluid, monitor BMP Hypertension, monitor, cont home meds, adjust meds as needed HLD, cont statin Diabetes, SSI for now, A1c 5.4 DVT prophylaxis, lovenox Disposition: NEIL - pending Brief history: 83-year-old woman with a history of hypertension, diabetes comes emergency room with complaints of slurred speech and left-sided weakness, status post fall, Complaining of pain on the left side. Subjective Date of service: 01/09/19 Interval history: patient seen and examined No acute event o/n patient more cooperative, passed swallow eval Updated family at the bedside MRI brain showed right basal ganglia CVA Objective - Exam Narrative Exam: General Apperance: The patient lying in bed, breathing comfortable HEENT: Normocephalic, atraumatic. Pupils equally round and reactive to light, EOMI, no sclericterus or JVD or thyromegaly or nodule. , no carotid bruit, mucous membranes moist, no exudate or erythema Heart: S1-S2, regular is rhythm Lungs: Clear to auscultation bilaterally, breathing comfortable Abdomen: Positive bowel sounds, soft, nontender, nondistended, no organomegaly Extremities: No edema cyanosis clubbing Skin: no rash, nodule, warm and dry Neuro: cranial nerves 2-12 intact, speech is slurred, motor -LUE/LLE 4/5, sensory intact - Constitutional Vitals: Vital Signs - 12hr 01/09/19 01/09/19 01/09/19 03:00 04:28 08:33 Temperature 98.3 F 98.0 F Pulse Rate 53 L 65 45 L Respiratory 16 16 Rate Blood Pressure 153/73 164/82 O2 Sat by Pulse 99 97 Oximetry 01/09/19 01/09/19 01/09/19 10:00 10:10 10:14 Temperature Pulse Rate 61 61 Respiratory Rate Blood Pressure 164/82 164/82 O2 Sat by Pulse 98 Oximetry 01/09/19 11:41 Temperature 98.0 F Pulse Rate 54 L Respiratory 18 Rate Blood Pressure 177/83 O2 Sat by Pulse 98 Oximetry - Labs CBC & Chem 7: 01/05/19 17:55 01/09/19 06:05 Labs: Abnormal lab results 01/08/19 01/08/19 01/09/19 Range/Units 18:58 21:27 06:05 Chloride 108.8 H (98-107) mmol/L Carbon Dioxide 20 L (22-30) mmol/L Creatinine 1.7 H (0.7-1.2) mg/dL POC Glucose 147 H 153 H (70-105)
--- NOTE | 2019-01-09 16:05 | Progress Note ---
Subjective Date of service: 01/09/19 Interval history: patient seen and is more alert... stroke is resolving plan rehab no family here to speak to,,,, but she is much better than before Objective - Vital Sign Vital Signs - 12hr 01/09/19 01/09/19 01/09/19 04:28 08:33 10:00 Temperature 98.3 F 98.0 F Pulse Rate 65 45 L Respiratory 16 16 Rate Blood Pressure 153/73 164/82 O2 Sat by Pulse 99 97 98 Oximetry 01/09/19 01/09/19 01/09/19 10:10 10:14 11:41 Temperature 98.0 F Pulse Rate 61 61 54 L Respiratory 18 Rate Blood Pressure 164/82 164/82 177/83 O2 Sat by Pulse 98 Oximetry - Laboratory Findings CBC and BMP: 01/05/19 17:55 01/09/19 06:05 Abnormal Lab Findings: Abnormal Labs 01/05/19 01/05/19 01/06/19 17:55 17:55 04:35 RDW 12.6 L [place] % (Auto) 8.1 H Chloride Carbon Dioxide Creatinine 1.8 H Glucose 167 H POC Glucose HDL Cholesterol 70 H 01/06/19 01/06/19 01/06/19 08:31 12:03 16:14 RDW [place] % (Auto) Chloride Carbon Dioxide Creatinine Glucose POC Glucose 111 H 131 H 152 H HDL Cholesterol 01/06/19 01/07/19 01/07/19 20:56 07:45 12:21 RDW [place] % (Auto) Chloride Carbon Dioxide Creatinine Glucose POC Glucose 181 H 160 H 183 H HDL Cholesterol 01/07/19 01/07/19 01/08/19 17:06 21:01 05:14 RDW [place] % (Auto) Chloride 109.2 H Carbon Dioxide Creatinine 1.6 H Glucose 123 H POC Glucose 113 H 119 H HDL Cholesterol 01/08/19 01/08/19 01/08/19 11:26 18:58 21:27 RDW [place] % (Auto) Chloride Carbon Dioxide Creatinine Glucose POC Glucose 201 H 147 H 153 H HDL Cholesterol 01/09/19 06:05 RDW [place] % (Auto) Chloride 108.8 H Carbon Dioxide 20 L Creatinine 1.7 H Glucose POC Glucose HDL Cholesterol
[2019-01-10] MEDS: HumuLIN R SUB-Q SCH ×2 (07:30→11:30)
[2019-01-10] MEDS: NEURONTIN PO SCH (10:34)
[2019-01-10] MEDS: LASIX PO SCH (10:34)
[2019-01-10] MEDS: COREG PO SCH ×2 (10:34→21:24)
[2019-01-10] MEDS: ZESTRIL PO SCH (10:34)
--- NOTE | 2019-01-10 15:32 | Progress Note ---
Assessment and Plan Acute right basal ganglia CVA, - s/p MRI brain/CT head, cont stroke protocol - cont statin, follow neuro recommendation - PT recommended NEIL - MRI showed chronic hemorrhagic CVA on left basal ganglia, will cont to hold aspirin Acute encephalopathy - likely from acute CVA - appears more baseline per the family now - cont to monitor Acute renal insufficiency/vasomotor nephropathy - possibly has CKD, renal US with possible medical renal disease - Cr stable with IV fluid, monitored BMP Hypertension, cont home meds, adjust meds as needed HLD, cont statin Diabetes, SSI for now, A1c 5.4 DVT prophylaxis, can continue lovenox per neurology recommendation Disposition: NEIL - pending Brief history: 83-year-old woman with a history of hypertension, diabetes comes emergency room with complaints of slurred speech and left-sided weakness, status post fall, Complaining of pain on the left side. She was admitted with stoke protocol. Radiological data: CT head: No acute intracranial hemorrhage X-ray hip bilaterally: No definite radiographically visible acute skeletal pathology in the pelvis and hips Brain MRI:Approximate 1.6 cm ischemic infarct in the right basal ganglia e xtending to the right garcia radiata. A smaller more subacute ischemic infarct is suspected in the left basal ganglia as described. 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 Volume loss and chronic white matter changes. MRA brain:Unremarkable MRA head. Renal ultrasound bilateral: Nonspecific renal parenchymal disease. No obstructive uropathy. Bilateral renal cysts as described. Subjective Date of service: 01/10/19 Interval history: patient seen and examined No acute event o/n patient more cooperative, passed swallow eval Updated family at the bedside MRI brain showed right basal ganglia CVA Objective - Exam Narrative Exam: General Apperance: The patient lying in bed, breathing comfortable HEENT: Normocephalic, atraumatic. Pupils equally round and reactive to light, EOMI, no sclericterus or JVD or thyromegaly or nodule. , no carotid bruit, mucous membranes moist, no exudate or erythema Heart: S1-S2, regular is rhythm Lungs: Clear to auscultation bilaterally, breathing comfortable Abdomen: Positive bowel sounds, soft, nontender, nondistended, no organomegaly Extremities: No edema cyanosis clubbing Skin: no rash, nodule, warm and dry Neuro: cranial nerves 2-12 intact, speech is slurred, motor -LUE/LLE 4/5, sensory intact - Constitutional Vitals: Vital Signs - 12hr 01/10/19 01/10/19 01/10/19 04:47 08:34 10:34 Temperature 98.2 F 98.0 F Pulse Rate 56 L 56 L 56 L Respiratory 18 18 Rate Blood Pressure 159/73 148/103 148/103 O2 Sat by Pulse 98 99 Oximetry 01/10/19 12:18 Temperature 98.9 F Pulse Rate 58 L Respiratory 18 Rate Blood Pressure 147/79 O2 Sat by Pulse 96 Oximetry - Labs CBC & Chem 7: 01/05/19 17:55 01/09/19 06:05 Labs: Abnormal lab results 01/09/19 01/09/19 01/10/19 Range/Units 15:48 20:32 09:02 POC Glucose 195 H 170 H 114 H (70-105) 01/10/19 Range/Units 12:57 POC Glucose 173 H (70-105)
[2019-01-11 01:33] LABS: Calcium 9.2 mg/dL (8.4-10.2)
--- NOTE | 2019-01-11 07:29 | Progress Note ---
Assessment and Plan Assessment and plan: Patient is a 83 yo woman with a history of hypertension, DM type 2, OA with limited mobility who presented to [facility] ED on 01/05/19 with slurred speech and left sided weakness. Patient was admitted Dr. Cash then followed by Dr. Manuel up until today. * CT head: No acute intracranial hemorrhage * X-ray hip bilaterally: No definite radiographically visible acute skeletal pathology in the pelvis and hips * Brain MRI:Approximate 1.6 cm ischemic infarct in the right basal ganglia extending to the right garcia radiata. A smaller more subacute ischemic infarct is suspected in the left basal ganglia as described. 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 Volume loss and chronic white matter changes. * MRA brain:Unremarkable MRA head. * Renal ultrasound bilateral: Nonspecific renal parenchymal disease. No obstructive uropathy. Bilateral renal cysts as described. * 2D ECHO est EF 60-65%, mild to moderated concentric LVH, mild to moderate MR, right atrium mildly dilated, moderate to severe TR, moderate p. hypertension, RVSP calculated at 58 mmHg, contrast bubble study is negative Acute right basal ganglia CVA, - s/p MRI brain/CT head, cont stroke protocol - cont statin, follow neuro recommendation - PT recommended NEIL - MRI showed chronic hemorrhagic CVA on left basal ganglia, will cont to hold aspirin - no tPA because last time known > 4.5 hours Acute encephalopathy - likely from acute CVA - appears more baseline per the family now - cont to monitor Acute renal insufficiency/vasomotor nephropathy - possibly has CKD 3, renal US with possible medical renal disease - Cr stable with IV fluid, monitored BMP, Cr 1.8-->1.6-->1.7-->1.9, relatively steady Hypertension, cont home meds, adjust meds as needed HLD, cont statin Diabetes mellitus type 2, SSI for now, A1c 5.4 DVT prophylaxis, can continue lovenox per neurology recommendation Disposition: NEIL - pending History Interval history: Patient was seen and examined. Follow-up on current diagnosis of CVA. No overnight events reported to me. Patient denies any chest pain, shortness breath, nausea/vomiting or severe headaches. Imaging, nursing note, chart, labs and old chart reviewed. Discussed with patient. Hospitalist Physical - Physical exam Narrative exam: Gen: WDWN, NAD, Awake, Alert, Orientated HEENT: NCAT, EOMI, PERRL, OP Clear Neck: supple, no adenopathy, no thyromegaly, no JVD CVS/Heart: RRR, normal S1S2, pulses present bilaterally Chest/Lungs: CTA B, Symmetrical chest expansion, good air entry bilaterally GI/Abdomen: soft, NTND, good bowel sounds, no guarding or rebound /Bladder: no suprapubic tenderness, no CVA or paraspinal tenderness Extermity/Skin: no c/c/e, no obvious rash MSK: FROM x 4 Neuro: CN 2-12 grossly intact except vision, left sided weakness and mild/moderate dysarthria, mild/moderate sensory loss, left side drift and minor paralysis, but no new focal deficits Psych: calm - Constitutional Vitals: Temp Pulse Resp BP Pulse Ox 98.1 F 72 18 172/107 99 01/11/19 04:00 01/11/19 04:00 01/11/19 04:00 01/11/19 04:00 01/11/19 04:00 Results - Labs CBC & Chem 7: 01/05/19 17:55 01/11/19 00:58 Labs: Laboratory Last Values WBC 4.9 K/mm3 (4.5-11.0) 01/05/19 17:55 RBC 3.75 M/mm3 (3.65-5.03) 01/05/19 17:55 Hgb 11.2 gm/dl (10.1-14.3) 01/05/19 17:55 Hct 33.9 % (30.3-42.9) 01/05/19 17:55 MCV 91 fl (79-97) 01/05/19 17:55 MCH 30 pg (28-32) 01/05/19 17:55 MCHC 33 % (30-34) 01/05/19 17:55 RDW 12.6 % (13.2-15.2) L 01/05/19 17:55 Plt Count 198 K/mm3 (140-440) 01/05/19 17:55 Lymph % (Auto) 24.7 % (13.4-35.0) 01/05/19 17:55 King % (Auto) 8.1 % (0.0-7.3) H 01/05/19 17:55 Eos % (Auto) 0.7 % (0.0-4.3) 01/05/19 17:55 Baso % (Auto) 0.7 % (0.0-1.8) 01/05/19 17:55 Lymph # 1.2 K/mm3 (1.2-5.4) 01/05/19 17:55 King # 0.4 K/mm3 (0.0-0.8) 01/05/19 17:55 Eos # 0.0 K/mm3 (0.0-0.4) 01/05/19 17:55 Baso # 0.0 K/mm3 (0.0-0.1) 01/05/19 17:55 Seg Neutrophils % 65.8 % (40.0-70.0) 01/05/19 17:55 Seg Neutrophils # 3.2 K/mm3 (1.8-7.7) 01/05/19 17:55 PT 14.6 Sec. (12.2-14.9) 01/05/19 17:55 INR 1.07 (0.87-1.13) 01/05/19 17:55 APTT 27.5 Sec. (24.2-36.6) 01/05/19 17:55 15.1 Sec. (15.1-19.6) 01/05/19 17:55 Sodium 143 mmol/L (137-145) 01/11/19 00:58 Potassium 4.5 mmol/L (3.6-5.0) 01/11/19 00:58 Chloride 105.1 mmol/L (98-107) 01/11/19 00:58 Carbon Dioxide 26 mmol/L (22-30) 01/11/19 00:58 16 mmol/L 01/11/19 00:58 BUN 23 mg/dL (7-17) H 01/11/19 00:58 1.9 mg/dL (0.7-1.2) H 01/11/19 00:58 Estimated GFR 31 ml/min 01/11/19 00:58 12 % 01/11/19 00:58 Glucose 141 mg/dL (65-100) H 01/11/19 00:58 POC Glucose 126 (70-105) H 01/11/19 07:24 5.4 % (4-6) 01/07/19 14:35 Calcium 9.2 mg/dL (8.4-10.2) 01/11/19 00:58 < 0.010 ng/mL (0.00-0.029) 01/05/19 17:55 Triglycerides 69 mg/dL (2-149) 01/06/19 04:35 Cholesterol 184 mg/dL (50-199) 01/06/19 04:35 120 mg/dL (50-130) 01/06/19 04:35 70 mg/dL (40-59) H 01/06/19 04:35 2.62 % 01/06/19 04:35 Active Medications - Current Medications Current Medications: Generic Name Dose Route Start Last Admin Trade Name Freq PRN Reason Stop Dose Admin Acetaminophen 650 mg 01/05/19 22:48 Tylenol PO Q4H PRN Pain, Mild (1-3) Atorvastatin Calcium 40 mg 01/08/19 22:00 01/10/19 21:25 Lipitor PO 40 mg QHS OPAL Administration Bisacodyl 10 mg 01/05/19 22:48 Dulcolax ID QDAY PRN Constipation Carvedilol 12.5 mg 01/07/19 15:00 01/10/19 21:24 Coreg PO 12.5 mg BID OPAL Administration Furosemide 40 mg 01/08/19 10:00 01/10/19 10:34 Lasix PO 40 mg QDAY OPAL Administration Gabapentin 300 mg 01/06/19 10:00 01/10/19 10:34 Neurontin PO 300 mg DAILY OPAL Administration Hydralazine HCl 5 mg 01/05/19 21:50 01/07/19 23:44 Apresoline IV 5 mg Q6H PRN Administration Hypertension Insulin Human Regular 0 units 01/08/19 16:30 01/10/19 11:30 Humulin R SUB-Q Not Given ACHS [facility] Protocol Lisinopril 20 mg 01/07/19 15:00 01/10/19 10:34 Zestril PO 20 mg QDAY OPAL Administration Magnesium Hydroxide 30 ml 01/05/19 22:48 Milk Of Magnesia PO Q4H PRN Constipation Morphine Sulfate 1 mg 01/06/19 13:36 01/08/19 08:37 Morphine IV 1 mg Q4H PRN Administration Pain, Moderate (4-6) Ondansetron HCl 4 mg 01/05/19 22:48 Zofran IV Q8H PRN Nausea And Vomiting Sodium Chloride 10 ml 01/05/19 22:48 Sodium Chloride Flush Syringe 10 Ml IV PRN PRN LINE FLUSH
[2019-01-11] MEDS: HumuLIN R SUB-Q SCH ×6 (09:49→21:25)
[2019-01-11] MEDS: COREG PO SCH ×2 (09:54→21:24)
[2019-01-11] MEDS: NEURONTIN PO SCH (09:54)
[2019-01-11] MEDS: ZESTRIL PO SCH (09:54)
[2019-01-11] MEDS: LASIX PO SCH (09:54)
--- NOTE | 2019-01-12 09:28 | Discharge Summary ---
Providers - Providers Date of Admission: 01/05/19 21:49 Date of discharge: 01/12/19 Attending physician: EDDIE MARTINEZ 01/05/19 22:48 Occupational Therapy Evaluate and Treat [CONS] Routine Comment: Reason For Exam: Neuro deficits Physical Therapy Evaluation and Treat [CONS] Routine Comment: Reason For Exam: Neuro deficits 01/05/19 22:59 Consult to Physician [CONS] Routine Comment: Consulting Provider: JUNG BRYAN Physician Instructions: Reason For Exam: cva 01/06/19 07:20 Speech Therapy Evaluation and Treat [CONS] Routine Reason For Exam: failed swollow eval in ER Hospitalization Condition: Stable Hospital course: Patient is a 83 yo woman with a history of hypertension, DM type 2, OA with limited mobility who presented to [facility] ED on 01/05/19 with slurred speech and left sided weakness. Patient was admitted Dr. Cash then followed by Dr. Manuel up until today. * CT head: No acute intracranial hemorrhage * X-ray hip bilaterally: No definite radiographically visible acute skeletal pathology in the pelvis and hips * Brain MRI:Approximate 1.6 cm ischemic infarct in the right basal ganglia extending to the right garcia radiata. A smaller more subacute ischemic infarct is suspected in the left basal ganglia as described. 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 Volume loss and chronic white matter changes. * MRA brain:Unremarkable MRA head. * Renal ultrasound bilateral: Nonspecific renal parenchymal disease. No obstructive uropathy. Bilateral renal cysts as described. * 2D ECHO est EF 60-65%, mild to moderated concentric LVH, mild to moderate MR, right atrium mildly dilated, moderate to severe TR, moderate p. hypertension, RVSP calculated at 58 mmHg, contrast bubble study is negative Acute right basal ganglia CVA - s/p MRI brain/CT head, cont stroke protocol - cont statin, follow neuro recommendation - PT recommended NEIL - MRI showed chronic hemorrhagic CVA on left basal ganglia, start aspirin upon discharge - no tPA because last time known > 4.5 hours Acute encephalopathy - likely from acute CVA - appears more baseline per the family now - cont to monitor Acute renal insufficiency/vasomotor nephropathy - possibly has CKD 3, renal US with possible medical renal disease - Cr stable with IV fluid, monitored BMP, Cr 1.8-->1.6-->1.7-->1.9, relatively steady Hypertension, cont home meds, adjust meds as needed HLD, cont statin Diabetes mellitus type 2, SSI for now, A1c 5.4 DVT prophylaxis, can continue lovenox per neurology recommendation Disposition: to [facility] Disposition: [id number] Time spent for discharge: 35 min Core Measure Documentation - Palliative Care Palliative Care/ Comfort Measures: Not Applicable - Core Measures Any of the following diagnoses?: stroke - VTE Discharge Requirements Deep Vein Thrombosis/Pulmonary Embolism Present on Admission: No Has pt received <5 days of overlap therapy or INR<2.0: No Anticoagulant overlap therapy prescribed at discharge: No Contraindication No Overlap Therapy order at DC: Not Indicated - Stroke Discharge Requirements Statin for LDL = or >70 mg/dl on DC: Yes Anticoag for atrial fib/atrial flutter: Not Applicable Reason for no anticoag for AF/F on DC: Not Indicated Antithrombotic for ischemic stroke: Yes Exam - Physical Exam Narrative exam: Gen: WDWN, NAD, Awake, Alert, Orientated HEENT: NCAT, EOMI, PERRL, OP Clear Neck: supple, no adenopathy, no thyromegaly, no JVD CVS/Heart: RRR, normal S1S2, pulses present bilaterally Chest/Lungs: CTA B, Symmetrical chest expansion, good air entry bilaterally GI/Abdomen: soft, NTND, good bowel sounds, no guarding or rebound /Bladder: no suprapubic tenderness, no CVA or paraspinal tenderness Extermity/Skin: no c/c/e, no obvious rash MSK: FROM x 4 Neuro: CN 2-12 grossly intact except vision, left sided weakness and mild/moderate dysarthria, mild/moderate sensory loss, left side drift and minor paralysis, but no new focal deficits Psych: calm - Constitutional Vitals: Temp Pulse Resp BP Pulse Ox 98 F 77 16 146/89 98 01/12/19 08:04 01/12/19 08:04 01/12/19 08:04 01/12/19 08:04 01/12/19 08:04 Plan Activity: other (no strenous activity) Diet: other (Cardiac Puree with necter thick liquids per ST) Follow up with: [facility] [Other] - 3-5 Days JUNG BRYAN MD [Staff Physician] - 14 Days Prescriptions: AtorvaSTATin [Lipitor] 40 mg PO QHS #30 tablet
[2019-01-12] MEDS: LASIX PO SCH (10:31)
[2019-01-12] MEDS: NEURONTIN PO SCH (10:31)
[2019-01-12] MEDS: COREG PO SCH (10:31)
[2019-01-12] MEDS: ZESTRIL PO SCH (10:31)
[2019-01-12] MEDS: HumuLIN R SUB-Q SCH (10:32)
[2019-01-12 11:31] VITALS: BP 127/68
== END 2019-01-12 14:00 | DRG 64 ==
LOC: ED 17:32 → 4A 21:49
PROVIDERS: ADMIT Internal Medicine; ATTEND Internal Medicine
DX: I63.9 Cerebral infarction, unspecified (principal); N17.0 Acute kidney failure with tubular necrosis; G93.40 Encephalopathy, unspecified; G81.94 Hemiplegia, unspecified affecting left nondominant side; M19.90 Unspecified osteoarthritis, unspecified site; R47.81 Slurred speech; N18.3 Chronic kidney disease, stage 3 (moderate); I12.9 Hypertensive chronic kidney disease with stage 1 through stage 4 chronic kidney disease, or unspecified chronic kidney disease; E11.22 Type 2 diabetes mellitus with diabetic chronic kidney disease; J45.909 Unspecified asthma, uncomplicated; Z96.643 Presence of artificial hip joint, bilateral; E78.5 Hyperlipidemia, unspecified; Z90.710 Acquired absence of both cervix and uterus; Z82.49 Family history of ischemic heart disease and other diseases of the circulatory system; Z88.0 Allergy status to penicillin; Z79.82 Long term (current) use of aspirin; Z79.899 Other long term (current) drug therapy
CPT/HCPCS: 36415; 70450; 70544; 70551; 71045; 73521; 76770; 80048; 80061; 82962; 83036; 84484; 85025; 85610; 85670; 85730; 93005; 93010; 93306; G0378; A9270-GY; J0360; J1650; J1815; J2060; J2270; J7030; J7042

== ENCOUNTER 2020-05-20 19:03 | Observation (INO) | payer MEDICARE ==
[2020-05-20 19:55] LABS: Basophils % (Auto) 0.8 % (0.0-1.8); Eosinophils # (Auto) 0.1 K/mm3 (0.0-0.4); Eosinophils % (Auto) 1.2 % (0.0-4.3); Hemoglobin 12.1 gm/dl (10.1-14.3); Lymphocytes # (Auto) 1.3 K/mm3 (1.2-5.4); Lymphocytes % (Auto) 30.8 % (13.4-35.0); Mean Corpuscular HGB Conc 35 % (30-34); Mean Corpuscular Volume 87 fl (79-97); Monocytes # (Auto) 0.3 K/mm3 (0.0-0.8); Monocytes % (Auto) 8.2 % (0.0-7.3); Platelet Count 192 K/mm3 (140-440); Red Blood Count 4.02 M/mm3 (3.65-5.03); Red Cell Distribution Width 15.4 % (13.2-15.2)
[2020-05-20 20:06] LABS: BUN/Creatinine Ratio 7; Blood Urea Nitrogen 14 mg/dL (7-17); Calcium 9.7 mg/dL (8.4-10.2); Hemolysis Index 6; INR 1.04 (0.87-1.13)
[2020-05-20 20:07] LABS: Partial Thromboplastin Time 26.5 Sec. (24.2-36.6)
--- NOTE | 2020-05-20 20:19 | Emergency Department Report ---
ED General Adult HPI - General Chief complaint: Altered Mental Status Stated complaint: CONFUSION PUI?: No Time Seen by Provider: 05/20/20 20:04 Source: patient, family, EMS (EMS report is reviewed and appreciated.), RN notes reviewed, old records reviewed Mode of arrival: Stretcher Limitations: Altered Mental Status - History of Present Illness Initial comments: The patient was evaluated in the emergency department for symptoms described in the history of present illness. He/she was evaluated in the context of the global COVID-19 pandemic, which necessitated consideration that the patient might be at risk for infection with the virus that causes COVID-19. Institutional protocols and algorithms that pertain to the evaluation of patients at risk for COVID-19 are in a state of rapid change based on information released by regulatory bodies including the CDC and federal and state organizations. These policies and algorithms were followed during the patient's care in the emergency department. Please note that these policies, procedures and recommendations changed on a rapid basis. The patient is an 84-year-old female. She is not known to myself previously. Her past medical history includes stroke, hypertension and renal insufficiency Her prescription medications include lisinopril, Lasix, sodium bicarbonate, aspirin, atenolol, and vitamin D. Her primary care doctor is at [facility]. The patient herself offers no complaints. The patient denies physical pain. The patient states "I do not know why I am here." I contact the patient's son, Mr. Robert uribe; he states that he called emergency medical services because the patient was "talking out of her head", and "her blood pressure was very high, it was over 200." He states that this morning, the patient was talking about having grandchildren over, and having coaxed them breakfast. He states this is factually inaccurate. Otherwise, there is no complaint of vomiting, fever, chest pain, shortness of breath, loss of consciousness. The patient lives by herself. The patient's son does not know if the patient's medications have been changed o r adjusted recently. The patient herself offers no complaints, therefore, there were no exacerbating, or relieving factors, aggravating factors, radiation factors The patient has a prior stroke with left-sided weakness and she reports that she ambulates with a walker. -: This afternoon Improves with: none Worsens with: none - Related Data Home Medications Medication Instructions Recorded Confirmed Last Taken Carvedilol [Coreg] 12.5 mg PO BID 07/24/18 05/20/20 Unknown Lisinopril [Zestril] 20 mg PO QDAY 07/24/18 05/20/20 05/20/20 07:00 Ergocalciferol [Vitamin D2] 50,000 units PO 1XW 05/20/20 05/20/20 05/17/20 07:00 Furosemide [Lasix TAB] 20 mg PO QDAY 05/20/20 05/20/20 05/20/20 07:00 Sodium Bicarbonate 650 mg PO BID 05/20/20 05/20/20 05/20/20 07:00 atenoloL [Tenormin] 25 mg PO DAILY 05/20/20 05/20/20 05/20/20 07:00 Previous Rx's Medication Instructions Recorded Last Taken Type Acetaminophen [Acetaminophen TAB] 650 mg PO Q4H PRN #30 tablet 01/12/19 Unknown Rx Aspirin [Adult Aspirin] 81 mg PO QDAY #30 tab 01/12/19 05/20/20 07:00 Rx AtorvaSTATin [Lipitor] 40 mg PO QHS #30 tablet 01/12/19 Unknown Rx Gabapentin 300 mg PO DAILY #30 tab 01/12/19 Unknown Rx Insulin Regular, Human [HumuLIN R] 1 dose SUB-Q ACHS PRN #1 vial 01/12/19 Unknown Rx bisacodyL [Dulcolax suppos] 10 mg GA QDAY PRN #5 supp.rect 01/12/19 Unknown Rx Allergies Allergy/AdvReac Type Severity Reaction Status Date / Time Penicillins Allergy Rash Verified 07/24/18 21:58 ED Review of Systems ROS: Stated complaint: CONFUSION Other details as noted in HPI Constitutional: see HPI Eyes: as per HPI ENT: as per HPI Respiratory: see HPI Cardiovascular: as per HPI Gastrointestinal: as per HPI Genitourinary: as per HPI Musculoskeletal: as per HPI Skin: as per HPI Neurological: as per HPI Psychiatric: as per HPI ED Past Medical Hx - Past Medical History Hx Hypertension: Yes Hx Diabetes: Yes Hx Arthritis: Yes Hx Asthma: Yes Additional medical history: Osteoarthritis - Surgical History Past Surgical History?: Yes Additional Surgical History: Bilateral hip replacement - Social History Smoking Status: Never Smoker Substance Use Type: None - Medications Home Medications: Home Medications Medication Instructions Recorded Confirmed Last Taken Type Carvedilol [Coreg] 12.5 mg PO BID 07/24/18 05/20/20 Unknown History Lisinopril [Zestril] 20 mg PO QDAY 07/24/18 05/20/20 05/20/20 07:00 History Acetaminophen [Acetaminophen TAB] 650 mg PO Q4H PRN #30 tablet 01/12/19 05/20/20 Unknown Rx Aspirin [Adult Aspirin] 81 mg PO QDAY #30 tab 01/12/19 05/20/20 05/20/20 07:00 Rx AtorvaSTATin [Lipitor] 40 mg PO QHS #30 tablet 01/12/19 05/20/20 Unknown Rx Gabapentin 300 mg PO DAILY #30 tab 01/12/19 05/20/20 Unknown Rx Insulin Regular, Human [HumuLIN R] 1 dose SUB-Q ACHS PRN #1 vial 01/12/19 05/20/20 Unknown Rx bisacodyL [Dulcolax suppos] 10 mg GA QDAY PRN #5 supp.rect 01/12/19 05/20/20 Unknown Rx Ergocalciferol [Vitamin D2] 50,000 units PO 1XW 05/20/20 05/20/20 05/17/20 07:00 History Furosemide [Lasix TAB] 20 mg PO QDAY 05/20/20 05/20/20 05/20/20 07:00 History Sodium Bicarbonate 650 mg PO BID 05/20/20 05/20/20 05/20/20 07:00 History atenoloL [Tenormin] 25 mg PO DAILY 05/20/20 05/20/20 05/20/20 07:00 History ED Physical Exam - General Limitations: Altered Mental Status, Physical Limitation General appearance: in no apparent distress - Head Head exam: Present: atraumatic, normocephalic - Eye Eye exam: Present: normal appearance, EOMI, other (Bilateral eyes are status post cataract surgery. Visual acuity is intact to finger counting color perception at a close distance). Absent: nystagmus - ENT ENT exam: Present: normal exam, normal orophraynx, mucous membranes moist, normal external ear exam - Neck Neck exam: Present: normal inspection, full ROM. Absent: tenderness, meningi smus - Respiratory Respiratory exam: Present: normal lung sounds bilaterally. Absent: respiratory distress, wheezes, rales, rhonchi, stridor, decreased breath sounds - Cardiovascular Cardiovascular Exam: Present: normal rhythm, bradycardia, normal heart sounds. Absent: tachycardia, irregular rhythm, systolic murmur, diastolic murmur, rubs, gallop - GI/Abdominal GI/Abdominal exam: Present: soft. Absent: distended, tenderness, guarding, rebound, rigid, pulsatile mass - Extremities Exam Extremities exam: Present: normal inspection, full ROM, other (2+ pulses noted in the bilateral upper and lower extremities. There is no palpable cord. negative Homans sign. Muscular compartments are soft. The pelvis is stable.). Absent: pedal edema, calf tenderness - Back Exam Back exam: Present: normal inspection, full ROM. Absent: tenderness, CVA tenderness (R), CVA tenderness (L), paraspinal tenderness, vertebral tenderness - Neurological Exam Neurological exam: Present: alert (Patient is alert to name and location. She thinks the year is 1936. She does not know the month.), other (There is no facial droop. The tongue is midline. The extraocular movements are intact bilaterally. Sensation is intact to light touch in 4 extremities. There is 5 out of 5 strength in the right upper and lower extremity. There is 4 out of 5 strength in the left upper and left lower extremity.) - Psychiatric Psychiatric exam: Present: normal affect, normal mood - Skin Skin exam: Present: warm, dry, intact, normal color. Absent: rash ED Course Vital Signs 05/20/20 05/20/20 05/20/20 19:47 20:00 20:26 Temperature Pulse Rate 46 L 44 L 41 L Respiratory 12 14 Rate Blood Pressure 198/81 173/92 O2 Sat by Pulse 93 93 Oximetry 05/20/20 05/20/20 21:00 21:28 Temperature 97.2 F L Pulse Rate 45 L Respiratory 12 Rate Blood Pressure 184/105 O2 Sat by Pulse 98 Oximetry - Reevaluation(s) Reevaluation #1: 05/20/20 20:50 Differential diagnosis, including but not limited to: TIA, pneumonia, thyroid abnormality, urinary tract infection, dementia Assessment and plan: Elderly 84-year-old female with prior history of stroke, with transient episode of nonsensical thought process, witnessed by her son, associated with high blood pressure, which is now resolved. This is most likely dementia. In 2019, the patient was admitted to this hospital for stroke evaluation. She had an echocardiogram which was negative for intracardiac shunt. She had an MRA of her brain which is essentially negative. She had an MRI which showed an acute infarct, and a subacute hemorrhagic infarct. She is currently on aspirin and antihypertensive therapy. She is not a TPA candidate as her last known well time is not explicitly known, and also, she has a hemorrhagic infarct, and her examination today appears to be consistent with prior examinations. 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 Urinalysis, remainder of laboratory studies are ordered and pending. We will reassess after initial data points. 05/20/20 20:51 Reevaluation #2: 05/20/20 22:24 Patient continues to remain neurologically unchanged. Urinalysis is suggestive of a urinary tract infection Not a TPA candidate as last known well time is multiple days ago, she appears to be back to her baseline, and her examination at this time is not suggestive of a large vessel occlusion. We will admit for urinary tract infection, confusion, TIA. Reevaluation #3: 05/20/20 22:34 Dr Valerie Miranda to admit ED Medical Decision Making - Lab Data Result diagrams: 05/20/20 19:28 05/20/20 19:28 Vital Signs 05/20/20 05/20/20 05/20/20 19:47 20:00 20:26 Pulse Rate 46 L 44 L 41 L Respiratory 12 14 Rate Blood Pressure 198/81 173/92 O2 Sat by Pulse 93 93 Oximetry Lab Results 05/20/20 05/20/20 05/20/20 Range/Units 19:28 19:28 19:28 WBC 4.2 L (4.5-11.0) K/mm3 RBC 4.02 (3.65-5.03) M/mm3 Hgb 12.1 (10.1-14.3) gm/dl Hct 35.0 (30.3-42.9) % MCV 87 (79-97) fl MCH 30 (28-32) pg MCHC 35 H (30-34) % RDW 15.4 H (13.2-15.2) % Plt Count 192 (140-440) K/mm3 Lymph % (Auto) 30.8 (13.4-35.0) % Glasscock % (Auto) 8.2 H (0.0-7.3) % Eos % (Auto) 1.2 (0.0-4.3) % Baso % (Auto) 0.8 (0.0-1.8) % Lymph # (Auto) 1.3 (1.2-5.4) K/mm3 Glasscock # (Auto) 0.3 (0.0-0.8) K/mm3 Eos # (Auto) 0.1 (0.0-0.4) K/mm3 Baso # (Auto) 0.0 (0.0-0.1) K/mm3 Seg Neutrophils % 59.0 (40.0-70.0) % Seg Neutrophils # 2.5 (1.8-7.7) K/mm3 PT 13.7 (12.2-14.9) Sec. INR 1.04 (0.87-1.13) APTT 26.5 (24.2-36.6) Sec. Thrombin Time (15.1-19.6) Sec. Sodium 144 (137-145) mmol/L Potassium 3.4 L (3.6-5.0) mmol/L Chloride 101.5 (98-107) mmol/L Carbon Dioxide 32 H (22-30) mmol/L Anion Gap 14 mmol/L BUN 14 (7-17) mg/dL Creatinine 1.9 H (0.6-1.2) mg/dL Estimated GFR 30 ml/min BUN/Creatinine Ratio 7 % Glucose 103 H (65-100) mg/dL POC Glucose (70-105) Calcium 9.7 (8.4-10.2) mg/dL Magnesium (1.7-2.3) mg/dL Total Creatine Kinase (30-135) units/L Troponin T < 0.010 (0.00-0.029) ng/mL Acetaminophen (10.0-30.0) ug/mL 05/20/20 05/20/20 05/20/20 Range/Units 19:28 19:50 20:21 WBC (4.5-11.0) K/mm3 RBC (3.65-5.03) M/mm3 Hgb (10.1-14.3) gm/dl Hct (30.3-42.9) % MCV (79-97) fl MCH (28-32) pg MCHC (30-34) % RDW (13.2-15.2) % Plt Count (140-440) K/mm3 Lymph % (Auto) (13.4-35.0) % Glasscock % (Auto) (0.0-7.3) % Eos % (Auto) (0.0-4.3) % Baso % (Auto) (0.0-1.8) % Lymph # (Auto) (1.2-5.4) K/mm3 Glasscock # (Auto) (0.0-0.8) K/mm3 Eos # (Auto) (0.0-0.4) K/mm3 Baso # (Auto) (0.0-0.1) K/mm3 Seg Neutrophils % (40.0-70.0) % Seg Neutrophils # (1.8-7.7) K/mm3 PT (12.2-14.9) Sec. INR (0.87-1.13) APTT (24.2-36.6) Sec. Thrombin Time 14.8 L (15.1-19.6) Sec. Sodium (137-145) mmol/L Potassium (3.6-5.0) mmol/L Chloride (98-107) mmol/L Carbon Dioxide (22-30) mmol/L Anion Gap mmol/L BUN (7-17) mg/dL Creatinine (0.6-1.2) mg/dL Estimated GFR ml/min BUN/Creatinine Ratio % Glucose (65-100) mg/dL POC Glucose 107 H (70-105) Calcium (8.4-10.2) mg/dL Magnesium 2.10 (1.7-2.3) mg/dL Total Creatine Kinase 110 (30-135) units/L Troponin T (0.00-0.029) ng/mL Acetaminophen (10.0-30.0) ug/mL 05/20/20 Range/Units 20:21 WBC (4.5-11.0) K/mm3 RBC (3.65-5.03) M/mm3 Hgb (10.1-14.3) gm/dl Hct (30.3-42.9) % MCV (79-97) fl MCH (28-32) pg MCHC (30-34) % RDW (13.2-15.2) % Plt Count (140-440) K/mm3 Lymph % (Auto) (13.4-35.0) % Glasscock % (Auto) (0.0-7.3) % Eos % (Auto) (0.0-4.3) % Baso % (Auto) (0.0-1.8) % Lymph # (Auto) (1.2-5.4) K/mm3 Glasscock # (Auto) (0.0-0.8) K/mm3 Eos # (Auto) (0.0-0.4) K/mm3 Baso # (Auto) (0.0-0.1) K/mm3 Seg Neutrophils % (40.0-70.0) % Seg Neutrophils # (1.8-7.7) K/mm3 PT (12.2-14.9) Sec. INR (0.87-1.13) APTT (24.2-36.6) Sec. Thrombin Time (15.1-19.6) Sec. Sodium (137-145) mmol/L Potassium (3.6-5.0) mmol/L Chloride (98-107) mmol/L Carbon Dioxide (22-30) mmol/L Anion Gap mmol/L BUN (7-17) mg/dL Creatinine (0.6-1.2) mg/dL Estimated GFR ml/min BUN/Creatinine Ratio % Glucose (65-100) mg/dL POC Glucose (70-105) Calcium (8.4-10.2) mg/dL Magnesium (1.7-2.3) mg/dL Total Creatine Kinase (30-135) units/L Troponin T (0.00-0.029) ng/mL Acetaminophen 5.0 L (10.0-30.0) ug/mL - EKG Data -: EKG Interpreted by Ne Rate: bradycardia - EKG Data 05/20/20 20:53 The EKG today shows a sinus rhythm, bradycardia, left axis deviation, left anterior fascicular block, left ventricular hypertrophy, lateral T wave inversions, EKG is abnormal, the EKG is not a STEMI. - Radiology Data Radiology results: pending, report reviewed, image reviewed Print Report Referring Physician: SEBASTIEN CORONA Patient Name: ALESSANDRA URIBE Date of : 1935 Sex: Female Report Date: 2020-05-20 Report Status: Finalized Findings [facility] [address] [place] [address] Cat Scan Report Signed Patient: ALESSANDRA URIBE MR#: [id number] : 1935 Acct:[id number] Age/Sex: 84 / F ADM Date: 05/20/20 Loc: ED Attending Dr: Ordering Physician: SEBASTIEN CORONA MD Date of Service: 05/20/20 Procedure(s): CT head/brain wo con Accession Number(s): [id number] cc: SEBASTIEN CORONA MD CT head/brain wo con INDICATION / CLINICAL INFORMATION: 84 years Female; neuro deficits <6hrs or sx present upon awakening. TECHNIQUE: Routine CT head without contrast. All CT scans at this location are performed using CT dose reduction for ALARA by means of automated exposure control. COMPARISON: The CT is compared to the previous study of 01/05/2019. FINDINGS: BRAIN / INTRACRANIAL CONTENTS: There is extensive cerebral white matter disease most consistent with advanced microvascular angiopathy. There are old infarcts involving basal ganglia bilaterally. The above changes appear to correlate with the previous CT. There is continued cerebral atrophy with mild prominence of the ventricular system. There is dense calcification along the falx and tentorium. However, there is no clear CT evidence of acute intracranial hemorrhage or significant mass effect. ORBITS: No significant abnormality of visualized orbits. SINUSES / MASTOIDS: No significant abnormality in the visualized paranasal sinuses or mastoid air cells. CRANIOCERVICAL JUNCTION: No significant abnormality. ADDITIONAL FINDINGS: None. IMPRESSION: 1. There is continued extensive microvascular angiopathy and old infarcts as detailed above without CT evidence of acute intracranial hemorrhage. Signer Name: Sebastien Staples MD Signed: 05/20/2020 8:54 PM Workstation Name: [id number] Transcribed By: MR Dictated By: Sebastien Staples MD Electronically Authenticated By: Sebastien Staples MD Signed Date/Time: 05/20/202053 DD/ 48 TD/TT: Critical care attestation.: If time is entered above; I have spent that time in minutes in the direct care of this critically ill patient, excluding procedure time. ED Disposition Clinical Impression: Renal insufficiency, Memory problem, Bacteriuria, Encephalopathy acute Disposition: DC-09 OP ADMIT IP TO THIS HOSP Is pt being admited?: Yes Does the pt Need Aspirin: No Condition: Good Referrals: PRIMARY CARE, [Primary Care Provider] - 3-5 Days - Assessment Assessment Interval: Baseline - Level of Consciousness 1a. Level of Consciousness: alert/keenly responsive - LOC Questions 1b. LOC Questions: answers 1 question correctly - LOC Command 1c. LOC Commands: performs tasks correctly - Best Gaze 2. Best Gaze: normal - Visual 3. Visual: no visual loss - Facial Palsy 4. Facial Palsy: normal symmetrical movement - Motor Arm 5a. Motor Arm Left: drift (chronic old weakness) 5b. Motor Arm Right: no drift - Motor Leg 6a. Motor Leg Left: drift (chronic weakness) 6b. Motor Leg Right: no drift - Limb Ataxia 7. Limb Ataxia: present 1 limb (left arm, chronic) - Sensory 8. Sensory: normal - Best Language 9. Best Language: no aphasia - Dysarthria 10. Dysarthria: intubated or other barrier - Extinction and Inattention 11. Extinction/Inattention: no abnormality - Scoring Total Score: 4 Stroke Severity: Minor Stroke
--- NOTE | 2020-05-20 20:59 | Cat Scan Report ---
CT head/brain wo con INDICATION / CLINICAL INFORMATION: 84 years Female; neuro deficits <6hrs or sx present upon awakening. TECHNIQUE: Routine CT head without contrast. All CT scans at this location are performed using CT dos e reduction for ALARA by means of automated exposure control. COMPARISON: The CT is compared to the previous study of 01/05/2019. FINDINGS: BRAIN / INTRACRANIAL CONTENTS: There is extensive cerebral white matter disease most consistent with advanced microvascular angiopathy. There are old infarcts involving basal ganglia bilaterally. The ab ove changes appear to correlate with the previous CT. There is continued cerebral atrophy with mild prominence of the ventricular system. There is dense ca lcification along the falx and tentorium. However, there is no clear CT evidence of acute intracrania l hemorrhage or significant mass effect. ORBITS: No significant abnormality of visualized orbits. SINUSES / MASTOIDS: No significant abnormality in the visualized paranasal sinuses or mastoid air tom ls. CRANIOCERVICAL JUNCTION: No significant abnormality. ADDITIONAL FINDINGS: None. IMPRESSION: 1. There is continued extensive microvascular angiopathy and old infarcts as detailed above without C T evidence of acute intracranial hemorrhage. Signer Name: Sebastien Staples MD Signed: 05/20/2020 8:54 PM Workstation Name: [id number]
--- NOTE | 2020-05-20 21:04 | XRay Report ---
CHEST 1 VIEW INDICATION / CLINICAL INFORMATION: weak ams. COMPARISON: 01/05/2019 FINDINGS: SUPPORT DEVICES: None. HEART / MEDIASTINUM: No significant abnormality. LUNGS / PLEURA: No significant pulmonary or pleural abnormality. No pneumothorax. ADDITIONAL FINDINGS: No significant additional findings. IMPRESSION: 1. No acute findings. No significant interval change. Signer Name: Lai Dasilva MD Signed: 05/20/2020 9:00 PM Workstation Name: [id number]
[2020-05-20] MEDS ORDERED: LACTATED RINGERS 500 ML IV ONE (21:19)
[2020-05-20 22:02] LABS: Bacteria,Urine 4+ /HPF (Negative); Bilirubin,Urine NEG (Negative); Blood,Urine SM (Negative); Color,Urine Amber (Yellow); Hyaline Casts,Urine 4 /LPF; Mucus,Urine 2+ /HPF
[2020-05-20] MEDS ORDERED: cefTRIAXone/NS 1 GM/50 ML 1 GM/50 ML BAG IV ONE (22:22)
[2020-05-20] MEDS ORDERED: ASPIRIN 81 MG TAB CHEW PO ONE (22:22)
[2020-05-20] MEDS ORDERED: amLODIPine 5 MG TAB PO ONE (22:32)
[2020-05-20] MEDS ORDERED: METOCLOPRAMIDE 10 MG TAB PO PRN ×2 (23:17→23:37)
[2020-05-20] MEDS ORDERED: ACETAMINOPHEN 325 MG TAB PO PRN ×2 (23:17)
[2020-05-20] MEDS ORDERED: MAGNESIUM HYDROXIDE (MOM) ORAL LIQD UDC PO PRN ×2 (23:17)
[2020-05-20] MEDS ORDERED: ONDANSETRON 4 MG/2 ML INJ IV PRN ×2 (23:17)
[2020-05-20] MEDS ORDERED: DEXTROSE 50% IN WATER (25GM) 50 ML SYRINGE IV PRN (23:17)
[2020-05-20] MEDS ORDERED: PROMETHAZINE 25 MG RECT SUPP PR PRN (23:17)
--- NOTE | 2020-05-20 23:31 | History and Physical Report ---
History of Present Illness Date of examination: 05/20/20 Date of admission: 05/20/20 22:27 Chief complaint: Altered mental status History of present illness: Patient is an 84-year-old female who lives alone and has known history of hypertension, diabetes mellitus, hyperlipidemia, CVA with left-sided weakness presenting to the emergency room today with changes in mental status. Patient is not a very good historian. She however denies any fever or chills, no chest pain or shortness of breath, no hematuria or dysuria, no headache or dizziness. Patient denies any history of falls. Patient has a previous CVA with left-sided weakness and states that she ambulates with a walker. Upon arrival in the emergency room today blood pressure was found to be quite el evated. Work-up including CT scan of the head showed chronic changes. Urinalysis reveals urinary tract infection. Patient has been started on empiric IV antibiotics. Past History Past Medical History: arthritis, diabetes, hypertension, hyperlipidemia Past Surgical History: total hip replacement (Bilateral) Social history: no significant social history Family history: no significant family history Medications and Allergies Allergies Allergy/AdvReac Type Severity Reaction Status Date / Time Penicillins Allergy Rash Verified 07/24/18 21:58 Home Medications Medication Instructions Recorded Confirmed Last Taken Type Carvedilol [Coreg] 12.5 mg PO BID 07/24/18 05/20/20 Unknown History Lisinopril [Zestril] 20 mg PO QDAY 07/24/18 05/20/20 05/20/20 07:00 History Acetaminophen [Acetaminophen TAB] 650 mg PO Q4H PRN #30 tablet 01/12/19 05/20/20 Unknown Rx Aspirin [Adult Aspirin] 81 mg PO QDAY #30 tab 01/12/19 05/20/20 05/20/20 07:00 Rx AtorvaSTATin [Lipitor] 40 mg PO QHS #30 tablet 01/12/19 05/20/20 Unknown Rx Gabapentin 300 mg PO DAILY #30 tab 01/12/19 05/20/20 Unknown Rx Insulin Regular, Human [HumuLIN R] 1 dose SUB-Q ACHS PRN #1 vial 01/12/19 05/20/20 Unknown Rx bisacodyL [Dulcolax suppos] 10 mg OR QDAY PRN #5 supp.rect 01/12/19 05/20/20 Unknown Rx Ergocalciferol [Vitamin D2] 50,000 units PO 1XW 05/20/20 05/20/20 05/17/20 07:00 History Furosemide [Lasix TAB] 20 mg PO QDAY 05/20/20 05/20/20 05/20/20 07:00 History Sodium Bicarbonate 650 mg PO BID 05/20/20 05/20/20 05/20/20 07:00 History atenoloL [Tenormin] 25 mg PO DAILY 05/20/20 05/20/20 05/20/20 07:00 History Active Meds: Active Medications Acetaminophen (Tylenol) 650 mg PO Q4H PRN PRN Reason: Pain MILD(1-3)/Fever >100.5/PACHECO Acetaminophen (Tylenol) 650 mg PO Q4H PRN PRN Reason: Pain, Mild (1-3) Bisacodyl (Dulcolax) 10 mg OR QDAY PRN PRN Reason: Constipation Magnesium Hydroxide (Milk Of Magnesia) 30 ml PO Q4H PRN PRN Reason: Constipation Metoclopramide HCl (Reglan) 10 mg PO Q6H PRN PRN Reason: Nausea And Vomiting Ondansetron HCl (Zofran) 4 mg IV Q8H PRN PRN Reason: Nausea And Vomiting Sodium Chloride (Sodium Chloride Flush Syringe 10 Ml) 10 ml IV BID OPAL Sodium Chloride (Sodium Chloride Flush Syringe 10 Ml) 10 ml IV PRN PRN PRN Reason: LINE FLUSH Sodium Chloride (Sodium Chloride Flush Syringe 10 Ml) 10 ml INJ PRN PRN PRN Reason: LINE FLUSH Review of Systems Constitutional: no fever, no chills Ears, nose, mouth and throat: no nasal congestion, no sore throat Cardiovascular: no chest pain, no palpitations Respiratory: no cough, no shortness of breath Gastrointestinal: no abdominal pain, no nausea, no vomiting, no diarrhea Genitourinary Female: no pelvic pain, no flank pain, no hematuria Musculoskeletal: no neck pain, no low back pain Integumentary: no rash, no pruritis Neurological: no headaches, no confusion Psychiatric: no anxiety, no depression Exam - Constitutional Vitals: Temp Pulse Resp BP Pulse Ox 97.2 F L 45 L 12 184/105 98 05/20/20 21:28 05/20/20 21:00 05/20/20 21:00 05/20/20 21:00 05/20/20 21:00 General appearance: Present: no acute distress, well-nourished - EENT Eyes: Present: PERRL, EOM intact ENT: hearing intact, clear oral mucosa, dentition normal - Neck Neck: Present: supple, normal ROM - Respiratory Respiratory effort: normal Respiratory: bilateral: CTA - Cardiovascular Rhythm: regular Heart Sounds: Present: S1 & S2. Absent: gallop, systolic murmur, diastolic murmur, rub - Extremities Extremities: no ischemia, pulses intact, pulses symmetrical, No edema, Full ROM Peripheral Pulses: within normal limits - Abdominal General gastrointestinal: Present: soft, non-tender, non-distended, normal bowel sounds. Absent: mass - Integumentary Integumentary: Present: clear, warm, dry - Musculoskeletal Musculoskeletal: left sided weakness - Psychiatric Psychiatric: appropriate mood/affect, intact judgment & insight, memory intact, cooperative - Neurologic Neurologic: CNII-XII intact, no focal deficits, moves all extremities HEART Score - HEART Score Troponin: Troponin T < 0.010 ng/mL (0.00-0.029) 05/20/20 19:28 Results - Labs CBC & Chem 7: 05/21/20 05:35 05/20/20 19:28 Labs: Abnormal lab results 05/20/20 05/20/20 05/20/20 Range/Units 19:28 19:28 19:28 WBC 4.2 L (4.5-11.0) K/mm3 MCHC 35 H (30-34) % RDW 15.4 H (13.2-15.2) % [place] % (Auto) 8.2 H (0.0-7.3) % Thrombin Time 14.8 L (15.1-19.6) Sec. Potassium 3.4 L (3.6-5.0) mmol/L Carbon Dioxide 32 H (22-30) mmol/L Creatinine 1.9 H (0.6-1.2) mg/dL Glucose 103 H (65-100) mg/dL POC Glucose (70-105) Ammonia (25-60) umol/L Urine WBC (Auto) (0.0-6.0) /HPF U Epithel Cells (Auto) (0-13.0) /HPF Salicylates (2.8-20.0) mg/dL Acetaminophen (10.0-30.0) ug/mL 05/20/20 05/20/20 05/20/20 Range/Units 19:50 20:21 20:21 WBC (4.5-11.0) K/mm3 MCHC (30-34) % RDW (13.2-15.2) % [place] % (Auto) (0.0-7.3) % Thrombin Time (15.1-19.6) Sec. Potassium (3.6-5.0) mmol/L Carbon Dioxide (22-30) mmol/L Creatinine (0.6-1.2) mg/dL Glucose (65-100) mg/dL POC Glucose 107 H (70-105) Ammonia (25-60) umol/L Urine WBC (Auto) (0.0-6.0) /HPF U Epithel Cells (Auto) (0-13.0) /HPF Salicylates < 0.3 L (2.8-20.0) mg/dL Acetaminophen 5.0 L (10.0-30.0) ug/mL 05/20/20 05/20/20 Range/Units 20:38 21:29 WBC (4.5-11.0) K/mm3 MCHC (30-34) % RDW (13.2-15.2) % [place] % (Auto) (0.0-7.3) % Thrombin Time (15.1-19.6) Sec. Potassium (3.6-5.0) mmol/L Carbon Dioxide (22-30) mmol/L Creatinine (0.6-1.2) mg/dL Glucose (65-100) mg/dL POC Glucose (70-105) Ammonia 19.0 L (25-60) umol/L Urine WBC (Auto) 56.0 H (0.0-6.0) /HPF U Epithel Cells (Auto) 71.0 H (0-13.0) /HPF Salicylates (2.8-20.0) mg/dL Acetaminophen (10.0-30.0) ug/mL Assessment and Plan - Patient Problems (1) Encephalopathy acute Current Visit: Yes Status: Acute Plan to address problem: Etiology is unclear possibly secondary to underlying UTI. We will continue to monitor mental status. It is unclear whether patient may have had another stroke. We will schedule for MRI of the brain. We also request evaluation by neurology. (2) UTI (urinary tract infection) Current Visit: Yes Status: Acute Plan to address problem: Patient placed on empiric IV antibiotics. We await urine culture results. (3) Renal insufficiency Current Visit: Yes Status: Acute Plan to address problem: We will place patient on IV fluid and will monitor BUN and creatinine. (4) HTN (hypertension) Current Visit: No Status: Acute Plan to address problem: We will resume routine home medications and monitor vital signs closely. We also placed on IV labetalol as needed. (5) Diabetes mellitus Current Visit: Yes Status: Acute Plan to address problem: We will monitor Accu-Cheks. (6) DVT prophylaxis Current Visit: No Status: Acute Plan to address problem: Patient placed on subcutaneous heparin. (7) Full code status Current Visit: Yes Status: Acute
[2020-05-21] MEDS ORDERED: ASPIRIN 81 MG TAB CHEW ONE (00:49)
[2020-05-21] MEDS ORDERED: cefTRIAXone/NS 1 GM/50 ML 1 GM/50 ML BAG IV ONE (00:50)
[2020-05-21] MEDS ORDERED: amLODIPine 5 MG TAB ONE (00:50)
[2020-05-21 06:11] LABS: Basophils % (Auto) 0.7 % (0.0-1.8); Eosinophils # (Auto) 0.1 K/mm3 (0.0-0.4); Eosinophils % (Auto) 1.4 % (0.0-4.3); Hematocrit 34.9 % (30.3-42.9); Hemoglobin 11.6 gm/dl (10.1-14.3); Lymphocytes % (Auto) 23.4 % (13.4-35.0); Mean Corpuscular HGB Conc 33 % (30-34); Mean Corpuscular Volume 87 fl (79-97); Monocytes # (Auto) 0.4 K/mm3 (0.0-0.8); Monocytes % (Auto) 9.8 % (0.0-7.3); Platelet Count 177 K/mm3 (140-440); Red Cell Distribution Width 14.9 % (13.2-15.2)
[2020-05-21 06:22] LABS: INR 1.04 (0.87-1.13)
[2020-05-21 07:29] LABS: Calcium 9.4 mg/dL (8.4-10.2); Chol/HDL Ratio 2.55 %
[2020-05-21] MEDS: INSULIN LISPRO 100 UNIT/ML VIAL 3 mL SUB-Q SCH ×4 (08:26→21:59)
[2020-05-21] MEDS ORDERED: POTASSIUM CHLORIDE ER 20 MEQ TAB PO NR (09:26)
[2020-05-21] MEDS ORDERED: LISINOPRIL 20 MG TAB PO SCH (10:00)
[2020-05-21] MEDS ORDERED: carvediloL 12.5 MG TAB PO SCH (10:00)
[2020-05-21] MEDS ORDERED: atenoloL 25 MG TAB PO SCH (10:00)
[2020-05-21] MEDS ORDERED: ERGOCALCIFEROL (VIT D2) 50,000 UNIT CAP PO SCH (10:00)
[2020-05-21] MEDS: ASPIRIN 325 MG TAB PO SCH (10:31)
[2020-05-21] MEDS: GABAPENTIN 300 MG CAP PO SCH (10:32)
[2020-05-21] MEDS: POTASSIUM CHLORIDE 10 MEQ 10 MEQ/100 ML BAG IV SCH ×2 (14:08→16:00)
[2020-05-21] MEDS: SODIUM CHLORIDE 0.9% 1000 ML 1,000 ML IV SCH (14:10)
--- NOTE | 2020-05-21 14:51 | Vascular Lab Report ---
BILATERAL CAROTID DOPPLER ULTRASOUND INDICATION : stroke TECHNIQUE: Grayscale and color Doppler imaging performed through the neck. COMPARISON: None FINDINGS: Right: There is mild partially calcified plaque in the carotid bulb. Peak systolic velocity in the CCA is 46 cm/s with end-diastolic velocity of 8 cm/s. Peak systolic velocity in the proximal ICA is 5 6 cm/s with end-diastolic velocity of 13 cm/s. ICA to CCA ratio is less than 2. There is antegrade f low in the ECA and the vertebral artery. Left: There is moderate partially calcified plaque in the carotid bulb. Peak systolic velocity in the CCA is 43 cm/s with end-diastolic velocity of 9 cm/s. Peak systolic velocity in the proximal ICA is 64 cm/s with end-diastolic velocity of 23 cm/s. ICA to CCA ratio is less than 2. There is antegrade flow in the ECA and the vertebral artery. IMPRESSION: No hemodynamically significant stenosis by NASCET criteria. Doppler velocities indicate l ess than 50% luminal narrowing bilaterally. Signer Name: Herman Ocampo Jr, MD Signed: 05/21/2020 1:19 PM Workstation Name: [id number]
--- NOTE | 2020-05-21 15:37 | Progress Note ---
Assessment and Plan --Encephalopathy acute Etiology is unclear possibly secondary to underlying UTI. We will continue to monitor mental status. It is unclear whether patient may have had another stroke. CT rbain- old b/l lacunar basal ganglia and subcortical lacunar strokes. MRI brain - pending. We also request evaluation by neurology. --Severe hypokalemia, replete -- UTI (urinary tract infection) Patient placed on empiric IV antibiotics. We await urine culture results. --ASHLEY, vasomotor nephropathy We will place patient on IV fluid and will monitor BUN and creatinine. 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 We also placed on IV labetalol as needed. -- Diabetes mellitus We will monitor Accu-Cheks. --DVT prophylaxis Patient placed on subcutaneous heparin. -- Full code status Brief History: Patient is an 84-year-old female who lives alone and has known history of hypertension, diabetes mellitus, hyperlipidemia, CVA with left-sided weakness presented to the emergency room with changes in mental status. Patient is a poor historian. She however states that she fell couple times at home last we ek. Patient has a previous CVA with left-sided weakness and states that she ambulates with a walker. Upon arrival in the emergency room blood pressure was found to be quite elevated 198/81 with a heart rate at 40s. Work-up including CT scan of the head showed chronic changes. Urinalysis reveals urinary tract infection. Patient has been started on empiric IV antibiotics and admitted to hospital for further evaluation management. 05/21; cont iv abx, follow MRI brain, follow PT eval and neuro recommendation. called grandson and updated. Consult cardiology for bradycardia. Subjective Date of service: 05/21/20 Interval history: Patient seen and examined. Medical records and medication list reviewed. No acute event overnight noted by the RN. Patient denies any chest pain or difficulty breathing. Patient is tolerating diet. Her mental status noted to be improved and able to communicate properly Called patient's grandson and updated Discussed plan of care at bedside with patient. Objective - Exam Narrative Exam: General appearance: Present: no acute distress, well-nourished - EENT Eyes: Present: PERRL, EOM intact ENT: hearing intact, clear oral mucosa, dentition normal - Neck Neck: Present: supple, normal ROM - Respiratory Respiratory effort: normal Respiratory: bilateral: CTA - Cardiovascular Rhythm: regular Heart Sounds: Present: S1 & S2. Absent: gallop, systolic murmur, diastolic murmur, rub - Extremities Extremities: no ischemia, pulses intact, pulses symmetrical, No edema, Full ROM Peripheral Pulses: within normal limits - Abdominal General gastrointestinal: Present: soft, non-tender, non-distended, normal bowel sounds. Absent: mass - Integumentary Integumentary: Present: clear, warm, dry - Musculoskeletal Musculoskeletal: left sided weakness - Psychiatric Psychiatric: appropriate mood/affect, intact judgment & insight, memory intact, cooperative - Neurologic Neurologic: CNII-XII intact, no focal deficits, moves all extremities - Labs CBC & Chem 7: 05/21/20 05:35 05/22/20 07:37 Labs: Abnormal lab results 05/20/20 05/20/20 05/20/20 Range/Units 19:28 19:28 19:28 WBC 4.2 L (4.5-11.0) K/mm3 MCHC 35 H (30-34) % RDW 15.4 H (13.2-15.2) % [place] % (Auto) 8.2 H (0.0-7.3) % Lymph # (Auto) (1.2-5.4) K/mm3 Thrombin Time 14.8 L (15.1-19.6) Sec. Potassium 3.4 L (3.6-5.0) mmol/L Carbon Dioxide 32 H (22-30) mmol/L Creatinine 1.9 H (0.6-1.2) mg/dL Glucose 103 H (65-100) mg/dL POC Glucose (70-105) Ammonia (25-60) umol/L HDL Cholesterol (40-59) mg/dL Urine WBC (Auto) (0.0-6.0) /HPF U Epithel Cells (Auto) (0-13.0) /HPF Salicylates (2.8-20.0) mg/dL Acetaminophen (10.0-30.0) ug/mL 09/29/20 09/29/20 09/29/20 Range/Units 19:50 20:21 20:21 WBC (4.5-11.0) K/mm3 MCHC (30-34) % RDW (13.2-15.2) % [place] % (Auto) (0.0-7.3) % Lymph # (Auto) (1.2-5.4) K/mm3 Thrombin Time (15.1-19.6) Sec. Potassium (3.6-5.0) mmol/L Carbon Dioxide (22-30) mmol/L Creatinine (0.6-1.2) mg/dL Glucose (65-100) mg/dL POC Glucose 107 H (70-105) Ammonia (25-60) umol/L HDL Cholesterol (40-59) mg/dL Urine WBC (Auto) (0.0-6.0) /HPF U Epithel Cells (Auto) (0-13.0) /HPF Salicylates < 0.3 L (2.8-20.0) mg/dL Acetaminophen 5.0 L (10.0-30.0) ug/mL 05/20/20 05/20/20 05/21/20 Range/Units 20:38 21:29 05:35 WBC 4.4 L (4.5-11.0) K/mm3 MCHC (30-34) % RDW (13.2-15.2) % [place] % (Auto) 9.8 H (0.0-7.3) % Lymph # (Auto) 1.0 L (1.2-5.4) K/mm3 Thrombin Time (15.1-19.6) Sec. Potassium (3.6-5.0) mmol/L Carbon Dioxide (22-30) mmol/L Creatinine (0.6-1.2) mg/dL Glucose (65-100) mg/dL POC Glucose (70-105) Ammonia 19.0 L (25-60) umol/L HDL Cholesterol (40-59) mg/dL Urine WBC (Auto) 56.0 H (0.0-6.0) /HPF U Epithel Cells (Auto) 71.0 H (0-13.0) /HPF Salicylates (2.8-20.0) mg/dL Acetaminophen (10.0-30.0) ug/mL 05/21/20 Range/Units 05:35 WBC (4.5-11.0) K/mm3 MCHC (30-34) % RDW (13.2-15.2) % [place] % (Auto) (0.0-7.3) % Lymph # (Auto) (1.2-5.4) K/mm3 Thrombin Time (15.1-19.6) Sec. Potassium 2.9 L* (3.6-5.0) mmol/L Carbon Dioxide (22-30) mmol/L Creatinine 1.6 H (0.6-1.2) mg/dL Glucose 107 H (65-100) mg/dL POC Glucose (70-105) Ammonia (25-60) umol/L HDL Cholesterol 76 H (40-59) mg/dL Urine WBC (Auto) (0.0-6.0) /HPF U Epithel Cells (Auto) (0-13.0) /HPF Salicylates (2.8-20.0) mg/dL Acetaminophen (10.0-30.0) ug/mL HEART Score - HEART Score Troponin: Troponin T < 0.010 ng/mL (0.00-0.029) 05/20/20 19:28
--- NOTE | 2020-05-21 16:52 | Consultation ---
History of Present Illness Consult date: 05/21/20 Reason for Consult: altered mental status History of present illness: Tele Neurology consult: Patient is an 84-year-old female who lives alone and has known history of hypertension, diabetes mellitus, hyperlipidemia, CVA with left-sided weakness presenting to the emergency room today with changes in mental status. Patient i The patient says she does not know why she is here. She however denies any fever or chills, no chest pain or shortness of breath, no hematuria or dysuria, no headache or dizziness. Patient denies any history of falls. Patient has a previous CVA with left-sided weakness and states that she ambulates with a walker. Upon arrival in the emergency room today blood pressure was found to be quite elevated. Work-up including CT scan of the head showed chronic changes. Urinalysis reveals urinary tract infection. Patient has been started on empiric IV antibiotics. Past History Past Medical History: arthritis, diabetes, hypertension, hyperlipidemia Past Surgical History: total hip replacement (Bilateral) Social history: no significant social history Family history: no significant family history Medications and Allergies Allergies Allergy/AdvReac Type Severity Reaction Status Date / Time Penicillins Allergy Rash Verified 07/24/18 21:58 Home Medications Medication Instructions Recorded Confirmed Last Taken Type Carvedilol [Coreg] 12.5 mg PO BID 07/24/18 05/20/20 Unknown History Lisinopril [Zestril] 20 mg PO QDAY 07/24/18 05/20/20 05/20/20 07:00 History Acetaminophen [Acetaminophen TAB] 650 mg PO Q4H PRN #30 tablet 01/12/19 05/20/20 Unknown Rx Aspirin [Adult Aspirin] 81 mg PO QDAY #30 tab 01/12/19 05/20/20 05/20/20 07:00 Rx AtorvaSTATin [Lipitor] 40 mg PO QHS #30 tablet 01/12/19 05/20/20 Unknown Rx Gabapentin 300 mg PO DAILY #30 tab 01/12/19 05/20/20 Unknown Rx Insulin Regular, Human [HumuLIN R] 1 dose SUB-Q ACHS PRN #1 vial 01/12/19 05/20/20 Unknown Rx bisacodyL [Dulcolax suppos] 10 mg OR QDAY PRN #5 supp.rect 01/12/19 05/20/20 Unknown Rx Ergocalciferol [Vitamin D2] 50,000 units PO 1XW 05/20/20 05/20/20 05/17/20 07:00 History Furosemide [Lasix TAB] 20 mg PO QDAY 05/20/20 05/20/20 05/20/20 07:00 History Sodium Bicarbonate 650 mg PO BID 05/20/20 05/20/20 05/20/20 07:00 History atenoloL [Tenormin] 25 mg PO DAILY 05/20/20 05/20/20 05/20/20 07:00 History Past History Past Medical History: arthritis, diabetes, hypertension, hyperlipidemia Past Surgical History: total hip replacement (Bilateral) Social history: no significant social history Family history: no significant family history Medications and Allergies Allergies Allergy/AdvReac Type Severity Reaction Status Date / Time Penicillins Allergy Rash Verified 07/24/18 21:58 Home Medications Medication Instructions Recorded Confirmed Last Taken Type Carvedilol [Coreg] 12.5 mg PO BID 07/24/18 05/20/20 Unknown History Lisinopril [Zestril] 20 mg PO QDAY 07/24/18 05/20/20 05/20/20 07:00 History Acetaminophen [Acetaminophen TAB] 650 mg PO Q4H PRN #30 tablet 01/12/19 05/20/20 Unknown Rx Aspirin [Adult Aspirin] 81 mg PO QDAY #30 tab 01/12/19 05/20/20 05/20/20 07:00 Rx AtorvaSTATin [Lipitor] 40 mg PO QHS #30 tablet 01/12/19 05/20/20 Unknown Rx Gabapentin 300 mg PO DAILY #30 tab 01/12/19 05/20/20 Unknown Rx Insulin Regular, Human [HumuLIN R] 1 dose SUB-Q ACHS PRN #1 vial 01/12/19 05/20/20 Unknown Rx bisacodyL [Dulcolax suppos] 10 mg OR QDAY PRN #5 supp.rect 01/12/19 05/20/20 Unknown Rx Ergocalciferol [Vitamin D2] 50,000 units PO 1XW 05/20/20 05/20/20 05/17/20 07:00 History Furosemide [Lasix TAB] 20 mg PO QDAY 05/20/20 05/20/20 05/20/20 07:00 History Sodium Bicarbonate 650 mg PO BID 05/20/20 05/20/20 05/20/20 07:00 History atenoloL [Tenormin] 25 mg PO DAILY 05/20/20 05/20/20 05/20/20 07:00 History Active Meds: Active Medications Acetaminophen (Tylenol) 650 mg PO Q4H PRN PRN Reason: Pain MILD(1-3)/Fever >100.5/PACHECO Amlodipine Besylate (Amlodipine) 10 mg PO QDAY [facility] Aspirin (Aspirin) 325 mg PO QDAY [facility] Last Admin: 05/21/20 10:31 Dose: 325 mg Documented by: Atorvastatin Calcium (Lipitor) 40 mg PO QHS [facility] Bisacodyl (Dulcolax) 10 mg OR QDAY PRN PRN Reason: Constipation Dextrose (D50w (25gm) Syringe) 50 ml IV Q30MIN PRN; Protocol PRN Reason: Hypoglycemia Ergocalciferol (Vitamin D2) 50,000 unit PO We [facility] Last Admin: 05/21/20 10:32 Dose: 50,000 unit Documented by: Gabapentin (Gabapentin) 300 mg PO DAILY [facility] Last Admin: 05/21/20 10:32 Dose: 300 mg Documented by: Heparin Sodium (Porcine) (Heparin) 5,000 unit SUB-Q Q8HR [facility] Sodium Chloride (Nacl 0.9% 1000 Ml) 1,000 mls @ 125 mls/hr IV DIRECT [facility] Last Admin: 05/21/20 14:10 Dose: 125 mls/hr Documented by: Insulin Human Lispro (Humalog) 0 unit SUB-Q ACHS [facility]; Protocol Lisinopril (Zestril) 20 mg PO QDAY [facility] Last Admin: 05/21/20 10:32 Dose: 20 mg Documented by: Lorazepam (Ativan) 1 mg IV ONCE ONE Stop: 05/22/20 15:58 Magnesium Hydroxide (Milk Of Magnesia) 30 ml PO Q4H PRN PRN Reason: Constipation Metoclopramide HCl (Reglan) 5 mg PO Q6H PRN PRN Reason: Nausea And Vomiting Ondansetron HCl (Zofran) 4 mg IV Q8H PRN PRN Reason: Nausea And Vomiting Potassium Chloride (K-Dur) 40 meq PO QDAY [facility] Promethazine HCl (Phenergan) 25 mg OR Q6H PRN PRN Reason: Nausea And Vomiting Sodium Chloride (Sodium Chloride Flush Syringe 10 Ml) 10 ml IV BID OPAL Sodium Chloride (Sodium Chloride Flush Syringe 10 Ml) 10 ml IV PRN PRN PRN Reason: LINE FLUSH Review of Systems All systems: negative (ams) Physical Examination - Vital Signs Vital Signs: Vital Signs Pulse 46 L 05/20/20 19:47 - Physical Exam Narrative exam: Neurology examination: alert awake talking. language- nl. cn- eomi no facial asymmetry M- moves her ue well. may be little less left ue.. moves her legs well. F-n- nl Laboratory Results - last 72 hr 05/20/20 05/20/20 05/20/20 19:28 19:28 19:28 WBC 4.2 L RBC 4.02 Hgb 12.1 Hct 35.0 MCV 87 MCH 30 MCHC 35 H RDW 15.4 H Plt Count 192 Lymph % (Auto) 30.8 [place] % (Auto) 8.2 H Eos % (Auto) 1.2 Baso % (Auto) 0.8 Lymph # (Auto) 1.3 [place] # (Auto) 0.3 Eos # (Auto) 0.1 Baso # (Auto) 0.0 Seg Neutrophils % 59.0 Seg Neutrophils # 2.5 PT 13.7 INR 1.04 APTT 26.5 Thrombin Time Sodium 144 Potassium 3.4 L Chloride 101.5 Carbon Dioxide 32 H Anion Gap 14 BUN 14 Creatinine 1.9 H Estimated GFR 30 BUN/Creatinine Ratio 7 Glucose 103 H POC Glucose Calcium 9.7 Magnesium Ammonia Total Creatine Kinase Troponin T < 0.010 Triglycerides Cholesterol LDL Cholesterol Direct HDL Cholesterol Cholesterol/HDL Ratio TSH Urine Color Urine Turbidity Urine pH Ur Specific [place] Urine Protein Urine Glucose (UA) Urine Ketones Urine Blood Urine Nitrite Urine Bilirubin Urine Urobilinogen Ur Leukocyte Esterase Urine WBC (Auto) Urine RBC (Auto) U Epithel Cells (Auto) Urine Bacteria (Auto) Hyaline Casts Urine Mucus Salicylates Acetaminophen 05/20/20 05/20/20 05/20/20 19:28 19:50 20:21 WBC RBC Hgb Hct MCV MCH MCHC RDW Plt Count Lymph % (Auto) [place] % (Auto) Eos % (Auto) Baso % (Auto) Lymph # (Auto) [place] # (Auto) Eos # (Auto) Baso # (Auto) Seg Neutrophils % Seg Neutrophils # PT INR APTT Thrombin Time 14.8 L Sodium Potassium Chloride Carbon Dioxide Anion Gap BUN Creatinine Estimated GFR BUN/Creatinine Ratio Glucose POC Glucose 107 H Calcium Magnesium 2.10 Ammonia Total Creatine Kinase 110 Troponin T Triglycerides Cholesterol LDL Cholesterol Direct HDL Cholesterol Cholesterol/HDL Ratio TSH Urine Color Urine Turbidity Urine pH Ur Specific [place] Urine Protein Urine Glucose (UA) Urine Ketones Urine Blood Urine Nitrite Urine Bilirubin Urine Urobilinogen Ur Leukocyte Esterase Urine WBC (Auto) Urine RBC (Auto) U Epithel Cells (Auto) Urine Bacteria (Auto) Hyaline Casts Urine Mucus Salicylates Acetaminophen 05/20/20 05/20/20 05/20/20 20:21 20:21 20:21 WBC RBC Hgb Hct MCV MCH MCHC RDW Plt Count Lymph % (Auto) [place] % (Auto) Eos % (Auto) Baso % (Auto) Lymph # (Auto) [place] # (Auto) Eos # (Auto) Baso # (Auto) Seg Neutrophils % Seg Neutrophils # PT INR APTT Thrombin Time Sodium Potassium Chloride Carbon Dioxide Anion Gap BUN Creatinine Estimated GFR BUN/Creatinine Ratio Glucose POC Glucose Calcium Magnesium Ammonia Total Creatine Kinase Troponin T Triglycerides Cholesterol LDL Cholesterol Direct HDL Cholesterol Cholesterol/HDL Ratio TSH 1.620 Urine Color Urine Turbidity Urine pH Ur Specific [place] Urine Protein Urine Glucose (UA) Urine Ketones Urine Blood Urine Nitrite Urine Bilirubin Urine Urobilinogen Ur Leukocyte Esterase Urine WBC (Auto) Urine RBC (Auto) U Epithel Cells (Auto) Urine Bacteria (Auto) Hyaline Casts Urine Mucus Salicylates < 0.3 L Acetaminophen 5.0 L 05/20/20 05/20/20 05/21/20 20:38 21:29 05:35 WBC 4.4 L RBC 4.00 Hgb 11.6 Hct 34.9 MCV 87 MCH 29 MCHC 33 RDW 14.9 Plt Count 177 Lymph % (Auto) 23.4 [place] % (Auto) 9.8 H Eos % (Auto) 1.4 Baso % (Auto) 0.7 Lymph # (Auto) 1.0 L [place] # (Auto) 0.4 Eos # (Auto) 0.1 Baso # (Auto) 0.0 Seg Neutrophils % 64.7 Seg Neutrophils # 2.8 PT INR APTT Thrombin Time Sodium Potassium Chloride Carbon Dioxide Anion Gap BUN Creatinine Estimated GFR BUN/Creatinine Ratio Glucose POC Glucose Calcium Magnesium Ammonia 19.0 L Total Creatine Kinase Troponin T Triglycerides Cholesterol LDL Cholesterol Direct HDL Cholesterol Cholesterol/HDL Ratio TSH Urine Color [place] Urine Turbidity Cloudy Urine pH 6.0 Ur Specific [place] 1.013 Urine Protein 30 mg/dl Urine Glucose (UA) Neg Urine Ketones Neg Urine Blood Sm Urine Nitrite Neg Urine Bilirubin Neg Urine Urobilinogen 4.0 Ur Leukocyte Esterase Sm Urine WBC (Auto) 56.0 H Urine RBC (Auto) 2.0 U Epithel Cells (Auto) 71.0 H Urine Bacteria (Auto) 4+ Hyaline Casts 4 Urine Mucus 2+ Salicylates Acetaminophen 05/21/20 05/21/20 05:35 05:35 WBC RBC Hgb Hct MCV MCH MCHC RDW Plt Count Lymph % (Auto) [place] % (Auto) Eos % (Auto) Baso % (Auto) Lymph # (Auto) [place] # (Auto) Eos # (Auto) Baso # (Auto) Seg Neutrophils % Seg Neutrophils # PT 13.7 INR 1.04 APTT Thrombin Time Sodium 145 Potassium 2.9 L* Chloride 103.2 Carbon Dioxide 30 Anion Gap 15 BUN 11 Creatinine 1.6 H Estimated GFR 37 BUN/Creatinine Ratio 7 Glucose 107 H POC Glucose Calcium 9.4 Magnesium Ammonia Total Creatine Kinase Troponin T Triglycerides 68 Cholesterol 194 LDL Cholesterol Direct 113 HDL Cholesterol 76 H Cholesterol/HDL Ratio 2.55 TSH Urine Color Urine Turbidity Urine pH Ur Specific [place] Urine Protein Urine Glucose (UA) Urine Ketones Urine Blood Urine Nitrite Urine Bilirubin Urine Urobilinogen Ur Leukocyte Esterase Urine WBC (Auto) Urine RBC (Auto) U Epithel Cells (Auto) Urine Bacteria (Auto) Hyaline Casts Urine Mucus Salicylates Acetaminophen Results - Laboratory Findings CBC and BMP: 05/21/20 05:35 05/21/20 05:35 Abnormal Lab Findings: Abnormal Labs 05/20/20 05/20/20 05/20/20 19:28 19:28 19:28 WBC 4.2 L MCHC 35 H RDW 15.4 H [place] % (Auto) 8.2 H Lymph # (Auto) Thrombin Time 14.8 L Potassium 3.4 L Carbon Dioxide 32 H Creatinine 1.9 H Glucose 103 H POC Glucose Ammonia HDL Cholesterol Urine WBC (Auto) U Epithel Cells (Auto) Salicylates Acetaminophen 05/20/20 05/20/20 05/20/20 19:50 20:21 20:21 WBC MCHC RDW [place] % (Auto) Lymph # (Auto) Thrombin Time Potassium Carbon Dioxide Creatinine Glucose POC Glucose 107 H Ammonia HDL Cholesterol Urine WBC (Auto) U Epithel Cells (Auto) Salicylates < 0.3 L Acetaminophen 5.0 L 05/20/20 05/20/20 05/21/20 20:38 21:29 05:35 WBC 4.4 L MCHC RDW [place] % (Auto) 9.8 H Lymph # (Auto) 1.0 L Thrombin Time Potassium Carbon Dioxide Creatinine Glucose POC Glucose Ammonia 19.0 L HDL Cholesterol Urine WBC (Auto) 56.0 H U Epithel Cells (Auto) 71.0 H Salicylates Acetaminophen 05/21/20 05:35 WBC MCHC RDW [place] % (Auto) Lymph # (Auto) Thrombin Time Potassium 2.9 L* Carbon Dioxide Creatinine 1.6 H Glucose 107 H POC Glucose Ammonia HDL Cholesterol 76 H Urine WBC (Auto) U Epithel Cells (Auto) Salicylates Acetaminophen Assessment and Plan Altered mental status - resolved. possibly secondary to underlying UTI. has h/o old cva, with residual left side weakens very mild weakness. h/o HTN, DM 2. continue to monitor mental status. ct rbain- old b/l lacunar basal ganglia and subcortical lacunar strokes. MRI brain w out- pending. c.doppler- nl. already on ASA 81 mg q day and lipitor 40 mg q hs at home. continue.
[2020-05-21] MEDS: amLODIPine 10 MG TAB PO SCH (17:56)
[2020-05-21] MEDS: HEPARIN 5,000 UNIT/1 ML VIAL SUB-Q SCH ×2 (18:28→21:26)
[2020-05-22] MEDS: SODIUM CHLORIDE 0.9% 1000 ML 1,000 ML IV SCH ×2 (03:49→16:53)
[2020-05-22] MEDS: HEPARIN 5,000 UNIT/1 ML VIAL SUB-Q SCH ×3 (05:43→21:32)
[2020-05-22] MEDS ORDERED: LORazepam 2 MG/ML VIAL IV NR ×2 (08:07→09:00)
[2020-05-22 08:47] LABS: Calcium 9.4 mg/dL (8.4-10.2)
[2020-05-22] MEDS: INSULIN LISPRO 100 UNIT/ML VIAL 3 mL SUB-Q SCH ×4 (09:03→21:33)
--- NOTE | 2020-05-22 10:21 | Consultation ---
History of Present Illness Consult date: 05/22/20 Consult reason: bradycardia History of present illness: This is a 84-year old F who is admitted with altered mental status and uncontrolled hypertension. Systolic BP [address] scan of the head showed chronic changes. Her ECG showed marked sinus bradycardia, LVH with repolarization abnormalities. Heart rate 48. Home medications lists she takes Carvedilol 12.5 mg twice day and Atenolol 25 mg daily for chronic hypertension. TSH is normal, 1.62. There were no reports of dizziness or syncope. No reported cardiac history. An echocardiogram done at this hospital a year ago reports a normal left ventricular systolic function, ejection fraction 60-65%. Cardiology consultation has been requested for further recommendations of marked sinus bradycardia. Past History Past Medical History: arthritis, diabetes, hypertension, hyperlipidemia Past Surgical History: total hip replacement (Bilateral) Social history: no significant social history Family history: no significant family history Medications and Allergies Allergies Allergy/AdvReac Type Severity Reaction Status Date / Time Penicillins Allergy Rash Verified 07/24/18 21:58 Home Medications Medication Instructions Recorded Confirmed Last Taken Type Carvedilol [Coreg] 12.5 mg PO BID 07/24/18 05/20/20 Unknown History Lisinopril [Zestril] 20 mg PO QDAY 07/24/18 05/20/20 05/20/20 07:00 History Acetaminophen [Acetaminophen TAB] 650 mg PO Q4H PRN #30 tablet 01/12/19 05/20/20 Unknown Rx Aspirin [Adult Aspirin] 81 mg PO QDAY #30 tab 01/12/19 05/20/20 05/20/20 07:00 Rx AtorvaSTATin [Lipitor] 40 mg PO QHS #30 tablet 01/12/19 05/20/20 Unknown Rx Gabapentin 300 mg PO DAILY #30 tab 01/12/19 05/20/20 Unknown Rx Insulin Regular, Human [HumuLIN R] 1 dose SUB-Q ACHS PRN #1 vial 01/12/19 05/20/20 Unknown Rx bisacodyL [Dulcolax suppos] 10 mg [place] QDAY PRN #5 supp.rect 01/12/19 05/20/20 Unknown Rx Ergocalciferol [Vitamin D2] 50,000 units PO 1XW 05/20/20 05/20/20 05/17/20 07:00 History Furosemide [Lasix TAB] 20 mg PO QDAY 05/20/20 05/20/20 05/20/20 07:00 History Sodium Bicarbonate 650 mg PO BID 05/20/20 05/20/20 05/20/20 07:00 History atenoloL [Tenormin] 25 mg PO DAILY 05/20/20 05/20/20 05/20/20 07:00 History Active Meds: Active Medications Acetaminophen (Tylenol) 650 mg PO Q4H PRN PRN Reason: Pain MILD(1-3)/Fever >100.5/PACHECO Amlodipine Besylate (Amlodipine) 10 mg PO QDAY [facility] Last Admin: 05/21/20 17:56 Dose: 10 mg Documented by: Aspirin (Aspirin) 325 mg PO QDAY [facility] Last Admin: 05/21/20 10:31 Dose: 325 mg Documented by: Atorvastatin Calcium (Lipitor) 40 mg PO QHS [facility] Last Admin: 05/21/20 21:26 Dose: 40 mg Documented by: Bisacodyl (Dulcolax) 10 mg [place] QDAY PRN PRN Reason: Constipation Dextrose (D50w (25gm) Syringe) 50 ml IV Q30MIN PRN; Protocol PRN Reason: Hypoglycemia Ergocalciferol (Vitamin D2) 50,000 unit PO We [facility] Last Admin: 05/21/20 10:32 Dose: 50,000 unit Documented by: Gabapentin (Gabapentin) 300 mg PO DAILY [facility] Last Admin: 05/21/20 10:32 Dose: 300 mg Documented by: Heparin Sodium (Porcine) (Heparin) 5,000 unit SUB-Q Q8HR [facility] Last Admin: 05/22/20 05:43 Dose: 5,000 unit Documented by: Hydralazine HCl (Apresoline) 100 mg PO TID [facility] Sodium Chloride (Nacl 0.9% 1000 Ml) 1,000 mls @ 125 mls/hr IV DIRECT [facility] Last Admin: 05/22/20 03:49 Dose: 125 mls/hr Documented by: Insulin Human Lispro (Humalog) 0 unit SUB-Q ACHS [facility]; Protocol Last Admin: 05/22/20 09:03 Dose: Not Given Documented by: Lorazepam (Ativan) 1 mg IV [employer] NR Stop: 05/22/20 23:00 Last Admin: 05/22/20 08:53 Dose: 1 mg Documented by: Magnesium Hydroxide (Milk Of Magnesia) 30 ml PO Q4H PRN PRN Reason: Constipation Metoclopramide HCl (Reglan) 5 mg PO Q6H PRN PRN Reason: Nausea And Vomiting Ondansetron HCl (Zofran) 4 mg IV Q8H PRN PRN Reason: Nausea And Vomiting Potassium Chloride (K-Dur) 40 meq PO QDAY [facility] Promethazine HCl (Phenergan) 25 mg [place] Q6H PRN PRN Reason: Nausea And Vomiting Sodium Chloride (Sodium Chloride Flush Syringe 10 Ml) 10 ml IV BID OPAL Sodium Chloride (Sodium Chloride Flush Syringe 10 Ml) 10 ml IV PRN PRN PRN Reason: LINE FLUSH Last Admin: 05/22/20 09:04 Dose: 10 ml Documented by: Physical Examination Vital Signs Pulse 46 L 05/20/20 19:47 Cardiac: Positive: Bradycardia Results 05/21/20 05:35 05/22/20 07:37 Comprehensive Metabolic Panel 05/22/20 Range/Units 07:37 Sodium 145 (137-145) mmol/L Potassium 4.4 D (3.6-5.0) mmol/L Chloride 106.9 (98-107) mmol/L Carbon Dioxide 28 (22-30) mmol/L BUN 14 (7-17) mg/dL Creatinine 1.5 H (0.6-1.2) mg/dL Glucose 96 (65-100) mg/dL Calcium 9.4 (8.4-10.2) mg/dL Assessment and Plan Sinus bradycardia likely s/t Carvedilol 12.5 mg twice day and Atenolol 25 mg daily TSH is normal AMS UTI Hypertension Discontinue Carvedilol and Atenolol. Optimal BP management.
--- NOTE | 2020-05-22 11:16 | Magnetic Resonance Report ---
MRI BRAIN WITHOUT CONTRAST INDICATION / CLINICAL INFORMATION: stroke. TECHNIQUE: Multiplanar, multisequence MR images of the brain were obtained. COMPARISON: MRI brain 01/08/[address] 05/20/2020. FINDINGS: BRAIN / INTRACRANIAL CONTENTS: There is a 14 mm diameter focus of restricted diffusion involving the left garcia radiata consistent with subacute infarction. Decreased signal intensity is seen in this location on ADC map imaging. Cor responding signal changes are observed on FLAIR and T2-weighted scans. An area of encephalomalacia is identified in a right ganglia capsular distribution at the site of a previous small deep infarction first demonstrated on MRI brain 01/08/2019. Gradient echo T2*weighted sequences reveal multiple foci of decreased signal intensity compatible wit h remote microhemorrhages involving left temporal lobe, left occipital lobe, right occipital lobe, ve rmis and both cerebellar hemispheres. These findings are unchanged. This is likely a manifestation of hypertensive microhemorrhages. Age-related parenchymal volume loss is demonstrated. Dilatation of the cortical sulci and ventricular system is noted in keeping with the patient's stated age of 84 years. Extensive periventricular, sub cortical and deep white matter hyperintensities are noted consistent with advanced microvascular isch emic changes. There is no mass effect. No evidence of recent intracranial hemorrhage or extra-axial f luid collection is seen. Evaluation of the brainstem is remarkable for evidence of remote small deep infarctions within the po ns to the left of the midline. CRANIOCERVICAL JUNCTION: No abnormalities are identified at the craniocervical junction. VASCULAR FLOW-VOIDS: Normal flow-voids are present within the major intracranial vessels. ORBITS: Patient is status post bilateral cataract surgery. The orbits have an otherwise unremarkable appearance. SINUSES / MASTOIDS: There is no indication of inflammatory disease in the paranasal sinuses or mastoi d air cells. IMPRESSION: 1. Subacute small deep infarction involving left garcia radiata. 2. Remote small deep infarction in the right ganglia capsular region first demonstrated on 01/08/2019. 3. Multiple remote pontine infarctions. 4. Multiple remote microhemorrhages unchanged from previous study. Signer Name: Chavez Collins MD Signed: 05/22/2020 11:12 AM Workstation Name: [id number]
[2020-05-22] MEDS: ASPIRIN 325 MG TAB PO SCH (13:17)
[2020-05-22] MEDS: POTASSIUM CHLORIDE ER 20 MEQ TAB PO SCH (13:18)
[2020-05-22] MEDS: GABAPENTIN 300 MG CAP PO SCH (13:18)
[2020-05-22] MEDS: amLODIPine 10 MG TAB PO SCH (13:36)
[2020-05-22] MEDS ORDERED: hydrALAZINE 100 MG TAB PO SCH (14:00)
[2020-05-22] MEDS ORDERED: SODIUM CHLORIDE 0.9% 1000 ML 1,000 ML IV ONE (14:00)
--- NOTE | 2020-05-22 15:12 | Progress Note ---
Assessment and Plan --Hypotension, Patient noted hypotensive following MRI today She did receive 1 dose of Ativan before the MRI Will hold BP meds for now and continue to follow We will give 1 L IV fluid bolus --Encephalopathy acute Etiology is unclear possibly secondary to underlying UTI. We will continue to monitor mental status. It is unclear whether patient may have had another stroke. CT rbain- old b/l lacunar basal ganglia and subcortical lacunar strokes. MRI brain - pending. We also request evaluation by neurology. --Severe hypokalemia, replete -- UTI (urinary tract infection) Patient placed on empiric IV antibiotics. We await urine culture results. --ASHLEY, vasomotor nephropathy patient on IV fluid and will monitor BUN and creatinine. 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 We also placed on IV labetalol as needed. -- Diabetes mellitus We will monitor Accu-Cheks. --DVT prophylaxis Patient placed on subcutaneous heparin. -- Full code status Brief History: Patient is an 84-year-old female who lives alone and has known history of hypertension, diabetes mellitus, hyperlipidemia, CVA with left-sided weakness presented to the emergency room with changes in mental status. Patient is a poor historian. She however states that she fell couple times at home last week. Patient has a previous CVA with left-sided weakness and states that she ambulates with a walker. Upon arrival in the emergency room blood pressure was found to be quite elevated 198/81 with a heart rate at 40s. Work-up including CT scan of the head showed chronic changes. Urinalysis reveals urinary tract infection. Patient has been started on empiric IV antibiotics and admitted to hospital for further evaluation management. 05/21; cont iv abx, follow MRI brain, follow PT eval and neuro recommendation. called grandson and updated. Consult cardiology for bradycardia. 05/22: Pending MRI result, patient blood pressure dropped to low 80s following MRI. We will give 1 L normal saline bolus, will hold BP meds. We will continue to monitor clinically. Subjective Date of service: 05/22/20 Interval history: Patient seen and examined. Medical records and medication list reviewed. No acute event overnight noted by the RN. Patient had MRI brain today Her BP dropped to low 80s after MRI Discussed plan of care at bedside with patient. Objective - Exam Narrative Exam: General appearance: Present: no acute distress, well-nourished - EENT Eyes: Present: PERRL, EOM intact ENT: hearing intact, clear oral mucosa, dentition normal - Neck Neck: Present: supple, normal ROM - Respiratory Respiratory effort: normal Respiratory: bilateral: CTA - Cardiovascular Rhythm: regular Heart Sounds: Present: S1 & S2. Absent: gallop, systolic murmur, diastolic murmur, rub - Extremities Extremities: no ischemia, pulses intact, pulses symmetrical, No edema, Full ROM Peripheral Pulses: within normal limits - Abdominal General gastrointestinal: Present: soft, non-tender, non-distended, normal bowel sounds. Absent: mass - Integumentary Integumentary: Present: clear, warm, dry - Musculoskeletal Musculoskeletal: left sided weakness - Psychiatric Psychiatric: appropriate mood/affect, intact judgment & insight, memory intact, cooperative - Neurologic Neurologic: CNII-XII intact, no focal deficits, moves all extremities - Constitutional Vitals: Vital Signs - 12hr 05/22/20 05/22/20 05/22/20 05:03 11:00 13:22 Temperature 97.6 F 97.6 F Pulse Rate 51 L 40 L 41 L Respiratory 18 18 Rate Blood Pressure 151/96 Blood Pressure 80/54 [Left] O2 Sat by Pulse 100 100 Oximetry 05/22/20 14:31 Temperature 98.4 F Pulse Rate 46 L Respiratory 18 Rate Blood Pressure Blood Pressure 150/93 [Left] O2 Sat by Pulse 100 Oximetry - Labs CBC & Chem 7: 05/21/20 05:35 05/22/20 07:37 Labs: Abnormal lab results 05/21/20 05/21/20 05/22/20 Range/Units 18:11 22:09 07:37 Creatinine 1.5 H (0.6-1.2) mg/dL POC Glucose 123 H 121 H (70-105) HEART Score - HEART Score Troponin: Troponin T < 0.010 ng/mL (0.00-0.029) 05/20/20 19:28
[2020-05-22] MEDS ORDERED: LORazepam 2 MG/ML VIAL IV ONE (15:57)
--- NOTE | 2020-05-22 16:17 | Progress Note ---
Assessment and Plan Altered mental status - resolved. possibly secondary to underlying UTI. has h/o old cva, .the MRI brain- no acute stroke seen . atrophy present. h/o HTN, DM 2. ct rbain- old b/l lacunar basal ganglia and subcortical lacunar strokes. c.doppler- nl. continue on ASA 81 mg q day and lipitor 40 mg q hs at home. continue. signing off. thanks Subjective Date of service: 05/22/20 Interval history: Tele Neurology; much better now and alert Objective - Exam Narrative Exam: Neurology examination: alert awake talking. language- nl. cn- eomi no facial asymmetry M- moves both ue and le well. F-n- nl Laboratory Results - last 72 hr 05/20/20 05/20/20 05/20/20 19:28 19:28 19:28 WBC 4.2 L RBC 4.02 Hgb 12.1 Hct 35.0 MCV 87 MCH 30 MCHC 35 H RDW 15.4 H Plt Count 192 Lymph % (Auto) 30.8 Hyde % (Auto) 8.2 H Eos % (Auto) 1.2 Baso % (Auto) 0.8 Lymph # (Auto) 1.3 Hyde # (Auto) 0.3 Eos # (Auto) 0.1 Baso # (Auto) 0.0 Seg Neutrophils % 59.0 Seg Neutrophils # 2.5 PT 13.7 INR 1.04 APTT 26.5 Thrombin Time Sodium 144 Potassium 3.4 L Chloride 101.5 Carbon Dioxide 32 H Anion Gap 14 BUN 14 Creatinine 1.9 H Estimated GFR 30 BUN/Creatinine Ratio 7 Glucose 103 H POC Glucose Calcium 9.7 Magnesium Ammonia Total Creatine Kinase Troponin T < 0.010 Triglycerides Cholesterol LDL Cholesterol Direct HDL Cholesterol Cholesterol/HDL Ratio TSH Urine Color Urine Turbidity Urine pH Ur Specific Redmon Urine Protein Urine Glucose (UA) Urine Ketones Urine Blood Urine Nitrite Urine Bilirubin Urine Urobilinogen Ur Leukocyte Esterase Urine WBC (Auto) Urine RBC (Auto) U Epithel Cells (Auto) Urine Bacteria (Auto) Hyaline Casts Urine Mucus Salicylates Acetaminophen 05/20/20 05/20/20 05/20/20 19:28 19:50 20:21 WBC RBC Hgb Hct MCV MCH MCHC RDW Plt Count Lymph % (Auto) Hyde % (Auto) Eos % (Auto) Baso % (Auto) Lymph # (Auto) Hyde # (Auto) Eos # (Auto) Baso # (Auto) Seg Neutrophils % Seg Neutrophils # PT INR APTT Thrombin Time 14.8 L Sodium Potassium Chloride Carbon Dioxide Anion Gap BUN Creatinine Estimated GFR BUN/Creatinine Ratio Glucose POC Glucose 107 H Calcium Magnesium 2.10 Ammonia Total Creatine Kinase 110 Troponin T Triglycerides Cholesterol LDL Cholesterol Direct HDL Cholesterol Cholesterol/HDL Ratio TSH Urine Color Urine Turbidity Urine pH Ur Specific Redmon Urine Protein Urine Glucose (UA) Urine Ketones Urine Blood Urine Nitrite Urine Bilirubin Urine Urobilinogen Ur Leukocyte Esterase Urine WBC (Auto) Urine RBC (Auto) U Epithel Cells (Auto) Urine Bacteria (Auto) Hyaline Casts Urine Mucus Salicylates Acetaminophen 05/20/20 05/20/20 05/20/20 20:21 20:21 20:21 WBC RBC Hgb Hct MCV MCH MCHC RDW Plt Count Lymph % (Auto) Hyde % (Auto) Eos % (Auto) Baso % (Auto) Lymph # (Auto) Hyde # (Auto) Eos # (Auto) Baso # (Auto) Seg Neutrophils % Seg Neutrophils # PT INR APTT Thrombin Time Sodium Potassium Chloride Carbon Dioxide Anion Gap BUN Creatinine Estimated GFR BUN/Creatinine Ratio Glucose POC Glucose Calcium Magnesium Ammonia Total Creatine Kinase Troponin T Triglycerides Cholesterol LDL Cholesterol Direct HDL Cholesterol Cholesterol/HDL Ratio TSH 1.620 Urine Color Urine Turbidity Urine pH Ur Specific Redmon Urine Protein Urine Glucose (UA) Urine Ketones Urine Blood Urine Nitrite Urine Bilirubin Urine Urobilinogen Ur Leukocyte Esterase Urine WBC (Auto) Urine RBC (Auto) U Epithel Cells (Auto) Urine Bacteria (Auto) Hyaline Casts Urine Mucus Salicylates < 0.3 L Acetaminophen 5.0 L 05/20/20 05/20/20 05/21/20 20:38 21:29 05:35 WBC 4.4 L RBC 4.00 Hgb 11.6 Hct 34.9 MCV 87 MCH 29 MCHC 33 RDW 14.9 Plt Count 177 Lymph % (Auto) 23.4 Hyde % (Auto) 9.8 H Eos % (Auto) 1.4 Baso % (Auto) 0.7 Lymph # (Auto) 1.0 L Hyde # (Auto) 0.4 Eos # (Auto) 0.1 Baso # (Auto) 0.0 Seg Neutrophils % 64.7 Seg Neutrophils # 2.8 PT INR APTT Thrombin Time Sodium Potassium Chloride Carbon Dioxide Anion Gap BUN Creatinine Estimated GFR BUN/Creatinine Ratio Glucose POC Glucose Calcium Magnesium Ammonia 19.0 L Total Creatine Kinase Troponin T Triglycerides Cholesterol LDL Cholesterol Direct HDL Cholesterol Cholesterol/HDL Ratio TSH Urine Color Nita Urine Turbidity Cloudy Urine pH 6.0 Ur Specific Redmon 1.013 Urine Protein 30 mg/dl Urine Glucose (UA) Neg Urine Ketones Neg Urine Blood Sm Urine Nitrite Neg Urine Bilirubin Neg Urine Urobilinogen 4.0 Ur Leukocyte Esterase Sm Urine WBC (Auto) 56.0 H Urine RBC (Auto) 2.0 U Epithel Cells (Auto) 71.0 H Urine Bacteria (Auto) 4+ Hyaline Casts 4 Urine Mucus 2+ Salicylates Acetaminophen 05/21/20 05/21/20 05:35 05:35 WBC RBC Hgb Hct MCV MCH MCHC RDW Plt Count Lymph % (Auto) Hyde % (Auto) Eos % (Auto) Baso % (Auto) Lymph # (Auto) Hyde # (Auto) Eos # (Auto) Baso # (Auto) Seg Neutrophils % Seg Neutrophils # PT 13.7 INR 1.04 APTT Thrombin Time Sodium 145 Potassium 2.9 L* Chloride 103.2 Carbon Dioxide 30 Anion Gap 15 BUN 11 Creatinine 1.6 H Estimated GFR 37 BUN/Creatinine Ratio 7 Glucose 107 H POC Glucose Calcium 9.4 Magnesium Ammonia Total Creatine Kinase Troponin T Triglycerides 68 Cholesterol 194 LDL Cholesterol Direct 113 HDL Cholesterol 76 H Cholesterol/HDL Ratio 2.55 TSH Urine Color Urine Turbidity Urine pH Ur Specific Redmon Urine Protein Urine Glucose (UA) Urine Ketones Urine Blood Urine Nitrite Urine Bilirubin Urine Urobilinogen Ur Leukocyte Esterase Urine WBC (Auto) Urine RBC (Auto) U Epithel Cells (Auto) Urine Bacteria (Auto) Hyaline Casts Urine Mucus Salicylates Acetaminophen - Vital Sign Vital Signs - 12hr 05/22/20 05/22/20 05/22/20 05:03 11:00 13:22 Temperature 97.6 F 97.6 F Pulse Rate 51 L 40 L 41 L Respiratory 18 18 Rate Blood Pressure 151/96 Blood Pressure 80/54 [Left] O2 Sat by Pulse 100 100 Oximetry 05/22/20 14:31 Temperature 98.4 F Pulse Rate 46 L Respiratory 18 Rate Blood Pressure Blood Pressure 150/93 [Left] O2 Sat by Pulse 100 Oximetry - Laboratory Findings CBC and BMP: 05/21/20 05:35 05/22/20 07:37 Abnormal Lab Findings: Abnormal Labs 05/20/20 05/20/2005/20/20 19:28 19:28 19:28 WBC 4.2 L MCHC 35 H RDW 15.4 H Hyde % (Auto) 8.2 H Lymph # (Auto) Thrombin Time 14.8 L Potassium 3.4 L Carbon Dioxide 32 H Creatinine 1.9 H Glucose 103 H POC Glucose Ammonia HDL Cholesterol Urine WBC (Auto) U Epithel Cells (Auto) Salicylates Acetaminophen 05/20/20 05/20/20 05/20/20 19:50 20:21 20:21 WBC MCHC RDW Hyde % (Auto) Lymph # (Auto) Thrombin Time Potassium Carbon Dioxide Creatinine Glucose POC Glucose 107 H Ammonia HDL Cholesterol Urine WBC (Auto) U Epithel Cells (Auto) Salicylates < 0.3 L Acetaminophen 5.0 L 05/20/20 05/20/20 05/21/20 20:38 21:29 05:35 WBC 4.4 L MCHC RDW Hyde % (Auto) 9.8 H Lymph # (Auto) 1.0 L Thrombin Time Potassium Carbon Dioxide Creatinine Glucose POC Glucose Ammonia 19.0 L HDL Cholesterol Urine WBC (Auto) 56.0 H U Epithel Cells (Auto) 71.0 H Salicylates Acetaminophen 05/21/20 05/21/20 05/21/20 05:35 18:11 22:09 WBC MCHC RDW Hyde % (Auto) Lymph # (Auto) Thrombin Time Potassium 2.9 L* Carbon Dioxide Creatinine 1.6 H Glucose 107 H POC Glucose 123 H 121 H Ammonia HDL Cholesterol 76 H Urine WBC (Auto) U Epithel Cells (Auto) Salicylates Acetaminophen 05/22/20 07:37 WBC MCHC RDW Hyde % (Auto) Lymph # (Auto) Thrombin Time Potassium Carbon Dioxide Creatinine 1.5 H Glucose POC Glucose Ammonia HDL Cholesterol Urine WBC (Auto) U Epithel Cells (Auto) Salicylates Acetaminophen
[2020-05-23] MEDS: SODIUM CHLORIDE 0.9% 1000 ML 1,000 ML IV SCH (00:54)
[2020-05-23] MEDS: HEPARIN 5,000 UNIT/1 ML VIAL SUB-Q SCH ×2 (04:59→14:01)
[2020-05-23] MEDS: INSULIN LISPRO 100 UNIT/ML VIAL 3 mL SUB-Q SCH ×3 (07:40→17:15)
[2020-05-23] MEDS ORDERED: ASPIRIN 325 MG TAB PO SCH (08:31)
[2020-05-23] MEDS ORDERED: amLODIPine 10 MG TAB PO SCH (10:00)
[2020-05-23] MEDS ORDERED: ASPIRIN 81 MG TAB CHEW PO SCH (10:00)
[2020-05-23] MEDS: POTASSIUM CHLORIDE ER 20 MEQ TAB PO SCH (10:16)
[2020-05-23] MEDS: GABAPENTIN 300 MG CAP PO SCH (10:16)
--- NOTE | 2020-05-23 10:16 | Progress Note ---
Assessment and Plan - Patient Problems (1) Encephalopathy acute Current Visit: Yes Status: Acute (2) Renal insufficiency Current Visit: Yes Status: Acute (3) UTI (urinary tract infection) Current Visit: Yes Status: Acute (4) CVA (cerebral vascular accident) Current Visit: No Status: Acute Subjective Date of service: 05/23/20 Interval history: NO C/O,,,DIDN'T SLEEP WELL Objective Vital Signs Temp Pulse Resp BP BP Pulse Ox 05/23/20 07:24 98.2 F 51 L 20 142/82 99 05/23/20 03:21 41 L 149/85 100 05/23/20 00:00 39 L 05/22/20 23:40 41 L 190/88 100 05/22/20 20:32 98.3 F 46 L 18 168/81 100 05/22/20 16:40 98.4 F 40 L 18 164/84 90 05/22/20 14:35 57 L 150/93 99 05/22/20 14:31 98.4 F 46 L 18 150/93 100 05/22/20 13:35 43 L 80/54 98 05/22/20 13:22 97.6 F 41 L 18 80/54 100 05/22/20 11:00 40 L - Physical Examination General: No Apparent Distress HEENT: Positive: PERRL Neck: Positive: neck supple Cardiac: Positive: Reg Rate and Rhythm Lungs: Positive: clear to auscultation Abdomen: Positive: Unremarkable, Soft Extremities: Present: normal
[2020-05-23 12:32] LABS: Calcium 9.6 mg/dL (8.4-10.2)
[2020-05-23] MEDS ORDERED: hydrALAZINE 100 MG TAB PO SCH (14:00)
--- NOTE | 2020-05-23 15:00 | Discharge Summary ---
Providers - Providers Date of Admission: 05/20/20 22:27 Date of discharge: 05/23/20 Attending physician: RUDDY CLOUD 05/20/20 Consult to Physician [CONS] Routine Comment: Consulting Provider: ELY ADAM Physician Instructions: Reason For Exam: Altered mental Status,H/O CVA R/O New CVA 05/20/20 20:37 Consult to Case Management [CONS] Stat Services Needed at Discharge: [facility] [employer] Notified:: awaiting call back 05/20/20 23:17 Occupational Therapy Evaluate and Treat [CONS] Routine Comment: Reason For Exam: Neuro deficits Physical Therapy Evaluation and Treat [CONS] Routine Comment: Reason For Exam: Neuro deficits 05/21/20 16:08 Consult to Physician [CONS] Routine Comment: Consulting Provider: ESTER WING Physician Instructions: Reason For Exam: bradycardia with fall 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 Patient is a poor historian. She however states that she fell couple times at home last week. Patient has a previous CVA with left-sided weakness and states that she ambulates with a walker. Upon arrival in the emergency room blood pressure was found to be quite elevated 198/81 with a heart rate at 40s. Work-up including CT scan of the head showed chronic changes. Urinalysis reveals urinary tract infection. Patient has been started on empiric IV antibiotics and admitted to hospital for further evaluation management. 05/21; cont iv abx, follow MRI brain, follow PT eval and neuro recommendation. called grandson and updated. Consult cardiology for bradycardia. 05/22: Pending MRI result, patient blood pressure dropped to low 80s following MRI. We will give 1 L normal saline bolus, will hold BP meds. We will continue to monitor clinically. 05/23: MRI showed subacute CVA. hypotension resolved. d/c home today. 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 We will continue to monitor mental status. It is unclear whether patient may have had another stroke. CT rbain- old b/l lacunar basal ganglia and subcortical lacunar strokes. MRI brain - pending. We also request evaluation by neurology. --Severe hypokalemia, replete -- UTI (urinary tract infection) Patient placed on empiric IV antibiotics. We await urine culture results. --ASHLEY, vasomotor nephropathy patient on IV fluid and will monitor BUN and creatinine. --Bradycardia, hold BB - atenolol and Coreg 2D echo showed preserved EF Cardiology consulted and recommended medical management --s/p fall x2 in last week PT eval -- HTN (hypertension), uncontrolled on admission Resumed routine home medications and monitor vital signs closely. We also placed on IV labetalol as needed. -- Diabetes mellitus We will monitor Accu-Cheks. --DVT prophylaxis Patient placed on subcutaneous heparin. -- Full code status Disposition: [id number] HOME UNDER HOME [facility] Time spent for discharge: 34 minutes Core Measure Documentation - Palliative Care Palliative Care/ Comfort Measures: Not Applicable - Core Measures Any of the following diagnoses?: none Exam - Physical Exam Narrative exam: General appearance: Present: no acute distress, well-nourished - EENT Eyes: Present: PERRL, EOM intact ENT: hearing intact, clear oral mucosa, dentition normal - Neck Neck: Present: supple, normal ROM - Respiratory Respiratory effort: normal Respiratory: bilateral: CTA - Cardiovascular Rhythm: regular Heart Sounds: Present: S1 & S2. Absent: gallop, systolic murmur, diastolic murmur, rub - Extremities Extremities: no ischemia, pulses intact, pulses symmetrical, No edema, Full ROM Peripheral Pulses: within normal limits - Abdominal General gastrointestinal: Present: soft, non-tender, non-distended, normal bowel sounds. Absent: mass - Integumentary Integumentary: Present: clear, warm, dry - Musculoskeletal Musculoskeletal: left sided weakness - Psychiatric Psychiatric: appropriate mood/affect, intact judgment & insight, memory intact, cooperative - Neurologic Neurologic: CNII-XII intact, no focal deficits, moves all extremities - Constitutional Vitals: Temp Pulse Resp BP Pulse Ox 98.0 F 50 L 20 186/96 92 05/23/20 11:27 05/23/20 12:15 05/23/20 11:27 05/23/20 12:15 05/23/20 11:27 Plan Activity: advance as tolerated Weight Bearing Status: Non-Weight Bearing Diet: low fat, low salt Special Instructions: record daily BP diary Follow up with: PRIMARY CARE, [Primary Care Provider] - 3-5 Days Prescriptions: amLODIPine 10 mg PO QDAY #60 tablet hydrALAZINE [Apresoline TAB] 100 mg PO TID #90 tab
[2020-05-23 15:04] VITALS: BP 155/81
== END 2020-05-23 17:30 | disposition home health service (06) ==
LOC: ED 19:03 → 4A 22:27
PROVIDERS: ADMIT Internal Medicine Geriatric Medicine; ATTEND Internal Medicine
DX: G93.40 Encephalopathy, unspecified (principal); E87.6 Hypokalemia; R41.82 Altered mental status, unspecified; I95.9 Hypotension, unspecified; N39.0 Urinary tract infection, site not specified; N17.0 Acute kidney failure with tubular necrosis; R00.1 Bradycardia, unspecified; N28.89 Other specified disorders of kidney and ureter; I10 Essential (primary) hypertension; E11.9 Type 2 diabetes mellitus without complications; E78.5 Hyperlipidemia, unspecified; M19.90 Unspecified osteoarthritis, unspecified site; I69.354 Hemiplegia and hemiparesis following cerebral infarction affecting left non-dominant side; J45.909 Unspecified asthma, uncomplicated; Z96.643 Presence of artificial hip joint, bilateral; Z79.4 Long term (current) use of insulin; Z79.899 Other long term (current) drug therapy; Z88.0 Allergy status to penicillin; W18.39XA Other fall on same level, initial encounter; Y93.89 Activity, other specified; Y92.89 Other specified places as the place of occurrence of the external cause
CPT/HCPCS: 36415; 70450; 70551; 71045; 80048; 80061; 81001; 82140; 82550; 82962; 83735; 84443; 84484; 85025; 85610; 85670; 85730; 87086; 93005; 93306; 93880; 96361; 96365; 96366; 96367; 96372; 96375; 97110; 97162; 97165; 97530; 99285; A9270; G0378; G0515; J0696; J1644; J2060; J3480; J7030; J7120; 80320; G0480